=== PATIENT | male | born 1965 | race Caucasian/White ===

== ENCOUNTER 2020-09-17 13:54 | Inpatient (IN) | payer OTHER, SELFPAY ==
[2020-09-17 13:55] VITALS: BP 143/99; PULSE 100; RESP 18; TEMP 35; O2SAT 96; BMI 29.0
--- NOTE | 2020-09-17 14:37 | CT_ITS ---
We are attempting to reach an attending provider to discuss findings. An addendum with communication details will be sent when the communication is complete. STUDY: CT ABDOMEN AND PELVIS WITH CONTRAST REASON FOR EXAM: Male, 54 years old. lower abdominal pain RADIATION DOSAGE (If Supplied By Facility): CTDIvol = ( 13.36 ) mGy, DLP = ( 1015.01 ) mGycm TECHNIQUE: Transaxial images were obtained from the dome of the diaphragm to the symphysis pubis without oral contrast. IV 100mL Isovue-300 was administered. Sagittal and coronal images were reconstructed. Individualized dose optimization techniques were used for this CT. COMPARISON: CT of abdomen and pelvis dated June 20162015 FINDINGS: There is acute diverticulitis in the mid aspect of the sigmoid colon near the midline of the upper pelvis with associated perforation and moderate pericolonic inflammatory stranding. Small amounts of contained free air are present just to the right of midline in the upper pelvis adjacent to the acute diverticulitis. The full length of the colon is mildly dilated with gas and fluid. Normal visualized stomach. There is a paralytic ileus of the small intestine with mild fluid distention. There are multiple colonic diverticula consistent with diverticulosis. The appendix is visualized and appears normal. The visualized lung bases are unremarkable. The visualized portions of the heart are within normal limits. Normal liver. Normal gallbladder and extrahepatic biliary system. Normal spleen. Normal pancreas. Normal bilateral adrenal glands. Normal right kidney. Normal left kidney. Normal abdominal aorta. Normal inferior vena cava. Normal retroperitoneum. Normal urinary bladder. There are prostatic calcifications. Normal abdominal wall. There are diffuse degenerative changes of the visualized lumbar spine. CT/Abdomen/Pelvis W IV Cont ONLY IMPRESSION: Acute perforated sigmoid diverticulitis 1. There is acute diverticulitis in the mid aspect of the sigmoid colon near the midline of the upper pelvis with associated perforation and moderate pericolonic inflammatory stranding. Small amounts of contained free air are present just to the right of midline in the upper pelvis adjacent to the acute diverticulitis. The full length of the colon is mildly dilated with gas and fluid. 2. Small bowel ileus Electronically Signed: Moy Rhodes MD at 17:39 EDT , Service support ,
[2020-09-17] MEDS: Ondansetron 4 MG/2 ML Vial IV (14:57)
[2020-09-17] MEDS: Morphine 4 MG/ML Syringe IV ×2 (14:57→16:27)
[2020-09-17] MEDS: 0.9% Normal Saline 1,000 ML 1000 ML IV (14:57)
--- NOTE | 2020-09-17 15:04 | ED.VIS.GI ---
History of Present Illness Chief Complaint: Abd Pain Informant: Patient - Abdominal Pain/Flank Pain Onset: Days Context: Gradual Onset Timing: Intermittent Quality: Aching, Sharp Location: - - Diffuse but worse on the right lower quadrant and suprapubic area Narrative: Patient is a 54-year-old male with history of colonic infection presenting for worsening abdominal pain. Patient states on Tuesday, 3 days ago, he started to have mild abdominal cramping. He thought maybe he was constipated so he took magnesium citrate for it. He did have bowel movements but has since had worsening abdominal pain. He started having nausea and vomiting. He states his vomit up yellow/green substance. He was feeling better yesterday with and felt worse again today. He drank more magnesium citrate today and is continue to feel worse. He denies any black or blood in his stool. He is having a lot of bowel movements. He is having significant pain in his suprapubic region whenever he hits bumps on the road. He denies any fever or chills. He denies any history of abdominal surgeries. He ate breakfast today but reports felt so bad he decided come to the emergency room. He states this feels much more severe than the last time he had his colon infection. No other complaints at this time. Past Medical History - Allergies and Home Meds Allergies/Adverse Reactions: Allergies bee venom protein (honey bee) Allergy (Verified 09/17/20 14:46) Hives Penicillins Adverse Reaction (Verified 09/17/20 13:58) Swelling Primary Care Physician: Adalberto Santamaria MD [Primary Care Provider] - Surgical History: no surgical history Smoking Status: Never smoker Review of Systems General: Denies: Chills, Fever, Sweats Eyes: Denies: Visual changes - bilaterally, Diplopia ENT: Denies: Rhinorrhea, Sore throat Cardiovascular: Denies: Chest pain, Palpitations Respiratory: Denies: Dyspnea, Cough, Dyspnea on exertion Gastrointestinal: Reports: Abdominal pain, Nausea, Vomiting, Diarrhea. Denies: Melena, Hematochezia Genitourinary: Denies: Dysuria, Hematuria, Frequency Musculoskeletal: Denies: Back pain, Extremity Pain Skin: Denies: Rash, Wounds Neurological: Denies: Headache, Weakness, Numbness Physical Exam Vital Signs/Narrative: Vital Signs Temp Pulse Resp BP Pulse Ox 09/17/20 13:55 95.0 F L 100 18 143/99 H 96 Inital Vital Signs reviewed: Yes General: Well nourished, Well developed, No Acute Distress Head: Normocephalic, Atraumatic Eyes: Perrl, EOMI ENT: Moist mucous membranes, No rhinorrhea Neck: Supple, Nontender Cardiovascular: Regular rate, Regular rhythm, No murmurs Respiratory: No distress, CTA bilaterally, Chest nontender Abdomen: Soft, Tender - Right lower quadrant and suprapubic region, Guarding, Rebound tenderness, Hypoactive bowel sounds. Negative for: Nondistended - Mildly distended abdomen, Mass, Salgado's sign Back: Nontender, Normal Inspection Extremities: Nontender, No edema Skin: Normal color, No rash Neurological: Alert, Oriented x3, Cranial nerves II-XII grossly intact, Normal Strength, Normal Sensation Psychological: Normal affect, Normal Mood Diagnostic/Tx/Re-eval Laboratory Data 09/17/20 09/17/20 09/17/20 14:53 14:53 14:53 WBC 13.3 H RBC 5.83 Hgb 16.6 H Hct 50.3 MCV 86.3 MCH 28.5 MCHC 33.0 RDW Std Deviation 40.5 RDW Coeff of Joelle 13.0 Plt Count 275 MPV 9.8 Immature Gran % (Auto) 0.200 Neut % (Auto) 83.2 H Lymph % (Auto) 9.5 L [place] % (Auto) 6.1 Eos % (Auto) 0.8 Baso % (Auto) 0.2 Absolute Neuts (auto) 11.1 H Absolute Lymphs (auto) 1.27 Nucleated RBC % 0 Sodium 138 Potassium 3.9 Chloride 105 Carbon Dioxide 31.0 Anion Gap 2 L BUN 15 Creatinine 1.24 Estim Creat Clear Calc 62.19 Est GFR (MDRD) Af Amer 77 Est GFR (MDRD) Non-Af 64 BUN/Creatinine Ratio 12.1 Glucose 96 Lactic Acid 1.2 Calcium 9.8 Total Bilirubin 0.40 AST 21 ALT 31 Alkaline Phosphatase 69 Total Protein 8.5 H Albumin 3.9 Globulin 4.6 H Albumin/Globulin Ratio 0.8 L Lipase 415 H Urine Color Urine Clarity Urine pH Ur Specific [place] Urine Protein Urine Glucose (UA) Urine Ketones Urine Occult Blood Urine Nitrite Urine Bilirubin Urine Urobilinogen Ur Leukocyte Esterase Urine RBC Urine WBC Ur Squamous Epith Cells Urine Bacteria Hyaline Casts Urine Mucus 09/17/20 15:25 WBC RBC Hgb Hct MCV MCH MCHC RDW Std Deviation RDW Coeff of Joelle Plt Count MPV Immature Gran % (Auto) Neut % (Auto) Lymph % (Auto) [place] % (Auto) Eos % (Auto) Baso % (Auto) Absolute Neuts (auto) Absolute Lymphs (auto) Nucleated RBC % Sodium Potassium Chloride Carbon Dioxide Anion Gap BUN Creatinine Estim Creat Clear Calc Est GFR (MDRD) Af Amer Est GFR (MDRD) Non-Af BUN/Creatinine Ratio Glucose Lactic Acid Calcium Total Bilirubin AST ALT Alkaline Phosphatase Total Protein Albumin Globulin Albumin/Globulin Ratio Lipase Urine Color Yellow Urine Clarity Clear Urine pH 5.0 Ur Specific [place] 1.025 Urine Protein 15 H Urine Glucose (UA) Normal Urine Ketones Negative Urine Occult Blood 10 H Urine Nitrite Negative Urine Bilirubin Negative Urine Urobilinogen Normal Ur Leukocyte Esterase Negative Urine RBC 0 SEEN Urine WBC 0 SEEN Ur Squamous Epith Cells 0 SEEN Urine Bacteria 1+ Hyaline Casts 0-5 SEEN Urine Mucus 1+ - Medical Decision Making Patient evaluated for worsening abdominal pain. Is his lower abdomen. He does have a history of diverticulitis. Patient appears nontoxic but mildly distressed secondary to pain. He has a very tender abdomen. Patient is treated with Zofran and morphine with minimal improvement of his symptoms. He is given IV fluids. Patient has a leukocytosis. His lipase is mildly elevated. When questioned by this patient states he has a history of elevated triglycerides. Patient is not appear to be on any medications. Patient is redosed with morphine and then Toradol. CT interpreted by myself shows diverticulitis with microperforations. The appendix appears normal. Surgery is made aware this patient but he will be treated medically. Patient is given Cipro and Flagyl as he is allergic to penicillin as it causes hives. He is admitted to the medicine service. Final CT read is still pending at time of final disposition. Patient agreeable with plan of care. [facility] ED Disposition - Plan for ED Patient: Disposition: Acute Care Hospital [facility] Diagnosis: Diverticulitis of colon with perforation, Elevated lipase Referrals: Adalberto Santamaria MD [Primary Care Provider] -
[2020-09-17 15:16] LABS: Absolute Lymphocyte Count 1.27 X10^3/uL (0.83-4.51); Absolute Neutrophil Count 11.1 X10^3/uL (2.0-7.7); Basophil# 0.03 X10^3/uL; Basophil% 0.2 % (0-1); Eosinophils% 0.8 % (0-5); Hematocrit 50.3 % (40-54); Hemoglobin 16.6 g/dL (13.0-16.5); Lymphocyte # 1.27 X10^3/ul (4.0); Lymphocyte % 9.5 % (19-41); Mean Corpuscular Hgb 28.5 pg (27.0-32.0); Mean Corpuscular Volume 86.3 fL (80-94); Mean Platelet Vol. 9.8 fl (6.2-12.0); Monocyte# 0.81 X10^3/uL; Monocyte% 6.1 % (0-10); NRBC Flagged by Analyzer 0 % (0-5); Neutrophil # 11.09 X10^3/uL (2.7-7.7); Neutrophil % 83.2 % (47-70); Platelet Count 275 K/mm3 (150-450); RBC Distribution Width SD 40.5 fl (35.1-43.9); Red Blood Count 5.83 M/mm3 (4.6-6.2); White Blood Count 13.3 K/mm3 (4.4-11.0)
[2020-09-17 15:33] VITALS: BP 139/91; PULSE 104; RESP 16; TEMP 37.7; O2SAT 96
[2020-09-17 15:33] LABS: Red Blood Cells-Urine 0 SEEN /hpf (0-5); Squamous Epithelial Cells - UA 0 SEEN /hpf (0-5); White Blood Cells 0 SEEN /hpf (0-5)
[2020-09-17 15:36] LABS: Color, Urine Yellow (Yellow); Glucose, Dipstick Normal (Normal); Ketone-Dipstick Negative (Negative); Leukocyte Esterase-Dipstick Negative /ul (Negative); Nitrite-Dipstick Negative (Negative); Occult Blood-Urine 10 /ul (Negative); Protein-Dipstick 15 mg/dl (Negative); Specific Gravity, Urine 1.025 (1.002-1.030); Urine Bilirubin Dipstick Negative (Negative); Urine Clarity Clear (Clear); Urine Urobilinogen Normal (Normal)
[2020-09-17 15:41] LABS: ALB/GLOB Ratio 0.8 RATIO (0.9-2.4); AST(SGOT) 21 U/L (15-37); Alanine Aminotransfer ALT/SGPT 31 U/L (16-61); Albumin, Serum 3.9 g/dL (3.2-5.0); Alkaline Phosphatase 69 U/L (45-117); Anion Gap 2 (5-15); BUN 15 mg/dL (7-18); BUN/Creat Ratio 12.1 RATIO (10-20); Calcium,Total 9.8 mg/dL (8.5-10.1); Chloride 105 mmol/L (98-107); Creatinine, Serum 1.24 mg/dL (0.70-1.30); EST Glomerular Filtration Rate 64 mL/min (>60); Est Glom Filt Rate - Afr Amer 77 mL/min (>60); Estimated Creatinine Clearance 62.19 ml/min; Globulin 4.6 g/dL (2.2-4.2); Glucose 96 mg/dL (74-106); Lipase 415 U/L (73-393); Potassium 3.9 mmol/L (3.5-5.1); Protein, Total 8.5 g/dL (6.4-8.2); Sodium Level 138 mmol/L (136-145)
[2020-09-17 15:42] LABS: Lactic Acid 1.2 mmol/L (0.4-1.9)
[2020-09-17 16:02] LABS: Bacteria 1+ /hpf (None Seen); Hyaline Cast 0-5 SEEN /lpf (0-5); Mucous, Urine 1+ /hpf (<or=2+)
[2020-09-17] MEDS: Ketorolac 15 MG/ML Vial IV (16:26)
[2020-09-17] MEDS: metroNIDAZOLE 500 MG/100 ML BAG 100 MG IV ×2 (16:46→22:31)
--- NOTE | 2020-09-17 16:48 | NURSING ---
MED SURG DIVERTICULTITIS JEANINES
[2020-09-17 17:06] VITALS: BMI 29.0
[2020-09-17 17:24] VITALS: BP 127/82; PULSE 86; RESP 18; TEMP 36.9; O2SAT 96
--- NOTE | 2020-09-17 18:12 | HP.PCM_ITS ---
History of Present Illness Date of Admission: 09/17/20 The patient is a 54 year old M presented to the ER due to lower abdominal pain. Patient states he has had abdominal pain in the last 3 days. It got a little better each day attempted to eat or take laxatives and it seemed to get a little bit worse and today it was the worst it has been. Patient not been eating much at all but been trying to drink to stay hydrated and also took some magnesium citrate today. Patient has history of diverticulitis about 3 years ago which he was hospitalized for. Patient states he did have recent scopes at [facility] about 2 years ago and EGD and colonoscopy. Patient did have reflux on EGD and diverticulosis on colonoscopy per patient. Patient's white blood count admit was 13. Patient CT abdomen pelvis official read call the micro per. Does appear to be a bit larger collection of air than a microperforation,but does appear to be contained?per my read. Patient states he does have reflux. Drinks alcohol 3-4 times a week about 3 or so beers each time has not had alcohol for a week due to not feeling well. Past Medical History Medical History: Medical History (Last Updated 09/17/20 @ 18:[address] Heide Medel MD) GERD (gastroesophageal reflux disease) K21.9 Allergies bee venom protein (honey bee) Allergy (Verified 09/17/20 14:46) Hives Penicillins Adverse Reaction (Verified 09/17/20 13:58) Swelling Home Medications: Ambulatory Orders Medication Instructions Recorded NK 09/17/20 Surgical History: - - right knee Psychiatric History: No pertinent psych hx Smoking Status: Never smoker Tobacco Use: Non-smoker Alcohol: Heavy - 4 times a week with about 3 beers or so each time - *Family History Maternal History Items: No pertinent history Review of Systems Constitutional: Reports: Anorexia Eyes: Denies: Blurred vision HEENT: Denies: Difficulty Swallowing Cardiovascular: Denies: Chest Pain Respiratory: Denies: Cough Gastrointestinal: Reports: Abdominal Pain, Diarrhea, Nausea. Denies: Hematochezia Genitourinary: Denies: Dysuria Neurological: Denies: Balance problems Psychiatric: Denies: Anxiety, Depression Hematologic/ Lymphatic: Denies: Easy Bruising, Easy Bleeding VTE Information - Inpt Only VTE Present on Admission: Yes VTE Mechan Device Prophylaxis: SCD's Patient Problems: Active and Suspected Problems (Last Updated 09/17/20 @ 18:[address] Heide Medel MD) Diverticulitis of colon with perforation (Acute) Elevated lipase (Acute) - Physical Exam Vitals/I&O's: Vital Signs Temp Pulse Resp BP Pulse Ox 98.4 F 86 18 127/82 H 96 09/17/20 17:24 09/17/20 17:24 09/17/20 17:24 09/17/20 17:24 09/17/20 17:24 Oxygen Delivery Method Room Air Weight: 185 lb Body Mass Index (BMI) 29.0 Intake and Output for Last 24 Hours 09/15/20 09/16/20 09/17/20 23:59 23:59 23:59 Intake Total 1000 / 1000 Balance 1000 / 1000 General: Alert, Oriented x3, Cooperative, No apparent distress HEENT: Atraumatic Lungs: Normal air movement Cardiovascular: Regular rate Abdomen: Soft, Distended - Mild, Tender - Lower abdomen, equivocal rebound on the right lower quadrant, no involuntary guarding Extremities: No clubbing, No cyanosis, No edema Neurological: Cranial nerves II-XII grossly intact Psych/Mental Status: Normal Affect Laboratory Results 09/17/20 14:53: WBC 13.3 H, RBC 5.83, Hgb 16.6 H, Hct 50.3, MCV 86.3, MCH 28.5, MCHC 33.0, RDW Std Deviation 40.5, RDW Coeff of Joelle 13.0, Plt Count 275, MPV 9.8, Immature Gran % (Auto) 0.200, Neut % (Auto) 83.2 H, Lymph % (Auto) 9.5 L, [place] % (Auto) 6.1, Eos % (Auto) 0.8, Baso % (Auto) 0.2, Absolute Neuts (auto) 11.1 H, Absolute Lymphs (auto) 1.27, Nucleated RBC % 0 09/17/20 14:53: Sodium 138, Potassium 3.9, Chloride 105, Carbon Dioxide 31.0, Anion Gap 2 L, BUN 15, Creatinine 1.24, Estim Creat Clear Calc 62.19, Est GFR (MDRD) Af Amer 77, Est GFR (MDRD) Non-Af 64, BUN/Creatinine Ratio 12.1, Glucose 96, Calcium 9.8, Total Bilirubin 0.40, AST 21, ALT 31, Alkaline Phosphatase 69, Total Protein 8.5 H, Albumin 3.9, Globulin 4.6 H, Albumin/Globulin Ratio 0.8 L, Lipase 415 H 09/17/20 14:53: Lactic Acid 1.2 09/17/20 15:25: Urine Color Yellow, Urine Clarity Clear, Urine pH 5.0, Ur Specific [place] 1.025, Urine Protein 15 H, Urine Glucose (UA) Normal, Urine Ketones Negative, Urine Occult Blood 10 H, Urine Nitrite Negative, Urine Bilirubin Negative, Urine Urobilinogen Normal, Ur Leukocyte Esterase Negative, Urine RBC 0 SEEN, Urine WBC 0 SEEN, Ur Squamous Epith Cells 0 SEEN, Urine Bacteria 1+, Hyaline Casts 0-5 SEEN, Urine Mucus 1+ Current Medications Sodium Chloride () 1,000 mls @ 125 mls/hr IV .Q8H [facility] Ciprofloxacin (Cipro) 400 mg in 200 mls @ 200 mls/hr IV Q12 [facility] Metronidazole (Flagyl) 500 mg in 100 mls @ 100 mls/hr IV Q8 [facility] Melatonin (Melatonin 3 Mg Tablet) 3 mg PO QHS PRN PRN PRN Reason: INSOMNIA Morphine Sulfate (Morphine 2 Mg/Ml Syringe) 2 mg IV Q3H PRN PRN PRN Reason: Pain Score 6-10 Ondansetron HCl (Ondansetron 4 Mg/2 Ml Vial) 4 mg IV Q8H PRN PRN PRN Reason: NAUSEA/VOMITING Assessment/Plan All Active Problems (Last Updated 09/17/20 @ 18:[address] Heide Medel MD) Diverticulitis of colon with perforation (Acute) Elevated lipase (Acute) 54-year-old male with perforated diverticulitis?contained 1. Did review CT abdomen pelvis with the patient discussed that he does have air outside his colon and appears to be larger than what I would call on microperforation. We will keep n.p.o./IV fluids. Discussed with patient that if his pain does increase or does not improve or increase heart rate, fevers or increased white blood cell count patient would need an urgent sigmoidectomy. Would plan to start laparoscopically and open if needed. Also discussed possible colostomy which would be lower as he does have fluid in the colon so I think he should be able to be primarily anastomosed during surgery if needed. Discussed the surgery including but not limited risk of bleeding, infection, leak at the anastomosis, injury to another organ, anesthesia. Patient expressed understanding had no further questions at this time. We will continue to follow patient closely for any changes will plan for urgent surgery. 2. Cipro 400 mg IV every 12, Flagyl 500 mg IV every 8 3. Continue pain control Heide Medel M.D. Pager: [phone] [facility] [address] [place] [address], [facility], [address] [place] [address] Office: [phone] Inpatient E&M: [id number] Init Hosp L3
[2020-09-17 18:22] VITALS: BMI 27.8
[2020-09-17 18:23] VITALS: BP 119/74; PULSE 86; RESP 18; TEMP 36.8; O2SAT 97
[2020-09-17] MEDS: Lactated Ringers 1,000 ML 999 ML IV (18:59)
[2020-09-17] MEDS: 0.9% Normal Saline 1,000 ML 125 ML IV (20:00)
[2020-09-17 20:15] VITALS: BP 132/87; PULSE 87; RESP 18; TEMP 36.8; O2SAT 95
[2020-09-17] MEDS: Morphine 2 MG/ML Syringe IV (20:31)
[2020-09-17 22:30] VITALS: BP 116/75; PULSE 79; RESP 16; TEMP 36.8; O2SAT 94
[2020-09-18] MEDS: Ciprofloxacin 400 MG/200 ML BAG 200 MG IV ×3 (00:12→23:17)
[2020-09-18 05:04] VITALS: BP 122/86; PULSE 81; RESP 18; TEMP 36.6; O2SAT 94
[2020-09-18] MEDS: metroNIDAZOLE 500 MG/100 ML BAG 100 MG IV ×3 (05:09→21:28)
[2020-09-18] MEDS: 0.9% Normal Saline 1,000 ML 125 ML IV ×2 (05:09→13:39)
[2020-09-18] MEDS: Morphine 2 MG/ML Syringe IV (05:11)
[2020-09-18 06:13] LABS: Absolute Lymphocyte Count 1.23 X10^3/uL (0.83-4.51); Absolute Neutrophil Count 6.1 X10^3/uL (2.0-7.7); Basophil# 0.01 X10^3/uL; Basophil% 0.1 % (0-1); Eosinophil# 0.09 X10^3/uL; Eosinophils% 1.1 % (0-5); Hematocrit 40.8 % (40-54); Lymphocyte # 1.23 X10^3/ul (4.0); Lymphocyte % 15.1 % (19-41); Mean Corp Hgb Conc 31.9 g/dL (32-36); Mean Corpuscular Hgb 27.8 pg (27.0-32.0); Mean Corpuscular Volume 87.2 fL (80-94); Mean Platelet Vol. 9.9 fl (6.2-12.0); Monocyte# 0.68 X10^3/uL; Monocyte% 8.3 % (0-10); NRBC Flagged by Analyzer 0 % (0-5); Neutrophil # 6.12 X10^3/uL (2.7-7.7); Platelet Count 203 K/mm3 (150-450); RBC Distribution Width CV 13.2 % (11.6-14.6); RBC Distribution Width SD 42.5 fl (35.1-43.9); Red Blood Count 4.68 M/mm3 (4.6-6.2); White Blood Count 8.2 K/mm3 (4.4-11.0)
[2020-09-18 06:44] LABS: Anion Gap 5 (5-15); BUN 12 mg/dL (7-18); Calcium,Total 8.3 mg/dL (8.5-10.1); Chloride 107 mmol/L (98-107); EST Glomerular Filtration Rate 82 mL/min (>60); Est Glom Filt Rate - Afr Amer 99 mL/min (>60); Estimated Creatinine Clearance 77.12 ml/min; Glucose 92 mg/dL (74-106); Potassium 3.8 mmol/L (3.5-5.1); Sodium Level 140 mmol/L (136-145)
--- NOTE | 2020-09-18 08:10 | PCM.PN.SRG ---
Patient Problems: Active and Suspected Problems (Last Updated 09/17/20 @ 18:[address] Heide Medel MD) Diverticulitis of colon with perforation (Acute) Elevated lipase (Acute) Subjective: States his abdominal pain is little bit better rates as 6/10. States that when he is up walking around does not has much discomfort. Patient has had some diarrhea - Physical Exam Vitals/I&O's: Vital Signs Temp Pulse Resp BP Pulse Ox 97.9 F 81 18 122/86 H 94 09/18/20 05:04 09/18/20 05:04 09/18/20 05:04 09/18/20 05:04 09/18/20 05:04 Oxygen Delivery Method Room Air Weight: 177 lb 7.554 oz Body Mass Index (BMI) 27.8 Intake and Output for Last 24 Hours 09/16/20 09/17/20 09/18/20 23:59 23:59 23:59 Intake Total 2200 / 2200 1412.08 / 1412.08 Balance 2200 / 2200 1412.08 / 1412.08 General: Alert, Oriented x3, Cooperative, No apparent distress HEENT: Atraumatic Lungs: Normal air movement Cardiovascular: Regular rate Abdomen: Soft, Non-Distended, Tender - Right lower/suprapubic, equivocal rebound, and no guarding Extremities: No clubbing, No cyanosis, No edema Neurological: Cranial nerves II-XII grossly intact Psych/Mental Status: Normal Affect Microbiology Past 72 Hours 09/17/20 20:15 Mucosa - Nose SARS-CoV-2 Antigen (Rapid) - Final Laboratory Results 09/17/20 14:53: WBC 13.3 H, RBC 5.83, Hgb 16.6 H, Hct 50.3, MCV 86.3, MCH 28.5, MCHC 33.0, RDW Std Deviation 40.5, RDW Coeff of Joelle 13.0, Plt Count 275, MPV 9.8, Immature Gran % (Auto) 0.200, Neut % (Auto) 83.2 H, Lymph % (Auto) 9.5 L, [place] % (Auto) 6.1, Eos % (Auto) 0.8, Baso % (Auto) 0.2, Absolute Neuts (auto) 11.1 H, Absolute Lymphs (auto) 1.27, Nucleated RBC % 0 09/17/20 14:53: Sodium 138, Potassium 3.9, Chloride 105, Carbon Dioxide 31.0, Anion Gap 2 L, BUN 15, Creatinine 1.24, Estim Creat Clear Calc 62.19, Est GFR (MDRD) Af Amer 77, Est GFR (MDRD) Non-Af 64, BUN/Creatinine Ratio 12.1, Glucose 96, Calcium 9.8, Total Bilirubin 0.40, AST 21, ALT 31, Alkaline Phosphatase 69, Total Protein 8.5 H, Albumin 3.9, Globulin 4.6 H, Albumin/Globulin Ratio 0.8 L, Lipase 415 H 09/17/20 14:53: Lactic Acid 1.2 09/17/20 15:25: Urine Color Yellow, Urine Clarity Clear, Urine pH 5.0, Ur Specific [place] 1.025, Urine Protein 15 H, Urine Glucose (UA) Normal, Urine Ketones Negative, Urine Occult Blood 10 H, Urine Nitrite Negative, Urine Bilirubin Negative, Urine Urobilinogen Normal, Ur Leukocyte Esterase Negative, Urine RBC 0 SEEN, Urine WBC 0 SEEN, Ur Squamous Epith Cells 0 SEEN, Urine Bacteria 1+, Hyaline Casts 0-5 SEEN, Urine Mucus 1+ 09/18/20 05:15: WBC 8.2, RBC 4.68, Hgb 13.0, Hct 40.8, MCV 87.2, MCH 27.8, MCHC 31.9 L, RDW Std Deviation 42.5, RDW Coeff of Joelle 13.2, Plt Count 203, MPV 9.9, Immature Gran % (Auto) 0.400, Neut % (Auto) 75.0 H, Lymph % (Auto) 15.1 L, [place] % (Auto) 8.3, Eos % (Auto) 1.1, Baso % (Auto) 0.1, Absolute Neuts (auto) 6.1, Absolute Lymphs (auto) 1.23, Nucleated RBC % 0 09/18/20 05:15: Sodium 140, Potassium 3.8, Chloride 107, Carbon Dioxide 28.0, Anion Gap 5, BUN 12, Creatinine 1.00, Estim Creat Clear Calc 77.12, Est GFR (MDRD) Af Amer 99, Est GFR (MDRD) Non-Af 82, BUN/Creatinine Ratio 12.0, Glucose 92, Calcium 8.3 L Current Medications Sodium Chloride () 1,000 mls @ 125 mls/hr IV .Q8H [facility] Last Infusion: 09/18/20 06:15 Dose: 125 mls/hr Documented by: Ciprofloxacin (Cipro) 400 mg in 200 mls @ 200 mls/hr IV Q12 [facility] Last Infusion: 09/18/20 01:15 Dose: Infused Documented by: Metronidazole (Flagyl) 500 mg in 100 mls @ 100 mls/hr IV Q8 [facility] Last Infusion: 09/18/20 06:09 Dose: Infused Documented by: Pantoprazole Sodium 40 mg/ (Sodium Chloride) 110 mls @ 330 mls/hr IV Q24 [facility] Last Infusion: 09/18/20 00:10 Dose: Infused Documented by: Melatonin (Melatonin 3 Mg Tablet) 3 mg PO QHS PRN PRN PRN Reason: INSOMNIA Morphine Sulfate (Morphine 2 Mg/Ml Syringe) 2 - 4 mg IV Q2H PRN PRN PRN Reason: Pain Score 3-10 Last Admin: 09/18/20 05:11 Dose: 2 mg Documented by: Morphine Sulfate (Morphine 4 Mg/Ml Syringe) 2 - 4 mg IV Q2H PRN PRN PRN Reason: Pain Score 3-10 Ondansetron HCl (Ondansetron 4 Mg/2 Ml Vial) 4 mg IV Q8H PRN PRN PRN Reason: NAUSEA/VOMITING Medical Necessity - Tobacco Use Smoking Status: Never smoker Tobacco Use: Non-smoker Assessment/Plan All Active Problems (Last Updated 09/17/20 @ 18:[address] Heide Medel MD) Diverticulitis of colon with perforation (Acute) Elevated lipase (Acute) 54-year-old male with perforated diverticulitis?contained 1. We will keep n.p.o./IV fluids. Patient's pain is slightly better. We will continue to monitor closely. Any changes patient understands we would plan for an urgent sigmoidectomy. 2. Cipro 400 mg IV every 12, Flagyl 500 mg IV every 8 3. Continue pain control Heide Medel M.D. Pager: [phone] [facility] [address] [place] [address], Outpatient [place], [address] [place] [address] Office: [phone] Inpatient E&M: [id number] [facility] L3
[2020-09-18 10:00] VITALS: BP 109/70; PULSE 77; RESP 18; TEMP 37.3; O2SAT 95
[2020-09-18 10:03] VITALS: O2SAT 95
--- NOTE | 2020-09-18 12:05 | CASEMGMT ---
DONA ALEXANDER Assessment: Face to Face with pt for initial transition planning/care coordination assessment. RN CATHERINE introduced self and role at [facility], pt voices understanding and consents to assessment. Pt is A/O x4 sitting up in bed and answers all questions appropriately at this time. Care providers, pharmacy, and demographics verified/updated. Admitting Dx: Diverticulitis [facility] Specialists: Denies Preferred Pharmacy: [facility] Insurance: MMO Prescription Benefit: yes LW/HPOA: Pt is not sure if he has a LW and DPOA. He denies need for further info stating he probably has pamphlets at home from another hospital stay. LNOK: brother Beto Mendez Living Arrangements: Pt lives alone in a single story house with 3 steps to enter with rail. Pt is I in ADL's and denies concerns at home. Transportation: Pt drives self. No issues with transportation. DME/HHC/SNF: Pt denies having DME and denies need for. No prior HHC or SNF stays. Pt states no concerns with going home at time of dc. Pt states no further concerns/needs. Advised pt to ask CM if any further question/concerns/needs arise, voices understanding. Pt Goal: Home Plan: Home with family support, follow up plans in place.
[2020-09-18 13:50] VITALS: BP 112/72; PULSE 78; RESP 18; TEMP 37.3; O2SAT 97
[2020-09-18] MEDS: Acetaminophen 325 MG Tablet 650 MG PO (16:09)
[2020-09-18 20:27] VITALS: BP 128/88; PULSE 73; RESP 18; TEMP 36.8; O2SAT 98
[2020-09-18] MEDS: 0.9% Saline Lock 10 ML Syringe IV (23:17)
[2020-09-19] MEDS: 0.9% Normal Saline 1,000 ML 125 ML IV (02:06)
[2020-09-19 02:07] VITALS: BP 128/74; PULSE 72; RESP 18; TEMP 36.6; O2SAT 99
[2020-09-19] MEDS: metroNIDAZOLE 500 MG/100 ML BAG 100 MG IV ×3 (05:49→21:26)
[2020-09-19 06:38] LABS: Absolute Lymphocyte Count 1.07 X10^3/uL (0.83-4.51); Absolute Neutrophil Count 6.1 X10^3/uL (2.0-7.7); Basophil# 0.02 X10^3/uL; Basophil% 0.2 % (0-1); Eosinophil# 0.19 X10^3/uL; Eosinophils% 2.3 % (0-5); Hematocrit 39.1 % (40-54); Hemoglobin 12.7 g/dL (13.0-16.5); Lymphocyte # 1.07 X10^3/ul (4.0); Mean Corp Hgb Conc 32.5 g/dL (32-36); Mean Corpuscular Hgb 28.4 pg (27.0-32.0); Mean Corpuscular Volume 87.5 fL (80-94); Mean Platelet Vol. 9.8 fl (6.2-12.0); Monocyte# 0.75 X10^3/uL; Monocyte% 9.1 % (0-10); NRBC Flagged by Analyzer 0 % (0-5); Neutrophil # 6.14 X10^3/uL (2.7-7.7); Platelet Count 206 K/mm3 (150-450); RBC Distribution Width CV 12.9 % (11.6-14.6); RBC Distribution Width SD 41.3 fl (35.1-43.9); Red Blood Count 4.47 M/mm3 (4.6-6.2); White Blood Count 8.2 K/mm3 (4.4-11.0)
--- NOTE | 2020-09-19 06:45 | PCM.PN.SRG ---
Patient Problems: Active and Suspected Problems (Last Updated 09/17/20 @ 18:[address] Heide Medel MD) Diverticulitis of colon with perforation (Acute) Elevated lipase (Acute) Subjective: Patient states abdominal pain is improving. States he is urinating quite a bit due to IV fluids. - Physical Exam Vitals/I&O's: Vital Signs Temp Pulse Resp BP Pulse Ox 97.8 F 72 18 128/74 H 99 09/19/20 02:07 09/19/20 02:07 09/19/20 02:07 09/19/20 02:07 09/19/20 02:07 Oxygen Delivery Method Room Air Weight: 177 lb 7.554 oz Body Mass Index (BMI) 27.8 Intake and Output for Last 24 Hours 09/17/20 09/18/20 09/19/20 23:59 23:59 23:59 Intake Total 2200 / 2200 5188.42 / 5188.42 210 / 210 Balance 2200 / 2200 5188.42 / 5188.42 210 / 210 General: Alert, Oriented x3, Cooperative, No apparent distress HEENT: Atraumatic Lungs: Normal air movement Cardiovascular: Regular rate Abdomen: Soft, Non-Distended, Tender - Right lower quadrant/suprapubic, focal rebound, no guarding Extremities: No clubbing, No cyanosis, No edema Skin: No rashes Microbiology Past 72 Hours 09/17/20 15:25 Urine, Clean Catch Urine Culture - Preliminary Gram Positive Cocci 09/17/20 20:15 Mucosa - Nose SARS-CoV-2 Antigen (Rapid) - Final Laboratory Results 09/19/20 06:10: WBC 8.2, RBC 4.47 L, Hgb 12.7 L, Hct 39.1 L, MCV 87.5, MCH 28.4, MCHC 32.5, RDW Std Deviation 41.3, RDW Coeff of Joelle 12.9, Plt Count 206, MPV 9.8, Immature Gran % (Auto) 0.400, Neut % (Auto) 75.0 H, Lymph % (Auto) 13.0 L, Gove % (Auto) 9.1, Eos % (Auto) 2.3, Baso % (Auto) 0.2, Absolute Neuts (auto) 6.1, Absolute Lymphs (auto) 1.07, Nucleated RBC % 0 09/19/20 06:10: Sodium Pending, Potassium Pending, Chloride Pending, Carbon Dioxide Pending, Anion Gap Pending, BUN Pending, Creatinine Pending, Est GFR (MDRD) Af Amer Pending, Est GFR (MDRD) Non-Af Pending, BUN/Creatinine Ratio Pending, Glucose Pending, Calcium Pending Current Medications Acetaminophen (Acetaminophen 325 Mg Tablet) 650 mg PO Q6H PRN PRN PRN Reason: Pain 1-10 or Fever Last Admin: 09/18/20 16:09 Dose: 650 mg Documented by: Sodium Chloride () 1,000 mls @ 125 mls/hr IV .Q8H [facility] Last Admin: 09/19/20 02:06 Dose: 125 mls/hr Documented by: Ciprofloxacin (Cipro) 400 mg in 200 mls @ 200 mls/hr IV Q12 [facility] Last Infusion: 09/19/20 00:31 Dose: Infused Documented by: Metronidazole (Flagyl) 500 mg in 100 mls @ 100 mls/hr IV Q8 [facility] Last Admin: 09/19/20 05:49 Dose: 100 mls/hr Documented by: Pantoprazole Sodium 40 mg/ (Sodium Chloride) 110 mls @ 330 mls/hr IV Q24 [facility] Last Infusion: 09/18/20 10:00 Dose: Infused Documented by: Melatonin (Melatonin 3 Mg Tablet) 3 mg PO QHS PRN PRN PRN Reason: INSOMNIA Morphine Sulfate (Morphine 2 Mg/Ml Syringe) 2 - 4 mg IV Q2H PRN PRN PRN Reason: Pain Score 3-10 Last Admin: 09/18/20 05:11 Dose: 2 mg Documented by: Morphine Sulfate (Morphine 4 Mg/Ml Syringe) 2 - 4 mg IV Q2H PRN PRN PRN Reason: Pain Score 3-10 Ondansetron HCl (Ondansetron 4 Mg/2 Ml Vial) 4 mg IV Q8H PRN PRN PRN Reason: NAUSEA/VOMITING Medical Necessity - Tobacco Use Smoking Status: Never smoker Tobacco Use: Non-smoker Assessment/Plan All Active Problems (Last Updated 09/17/20 @ 18:[address] Heide Medel MD) Diverticulitis of colon with perforation (Acute) Elevated lipase (Acute) 54-year-old male with perforated diverticulitis?contained 1. Patient pain still improving keep n.p.o./IV fluids. We will plan to repeat CAT scan tomorrow to see if this area is improving. 2. Cipro 400 mg IV every 12, Flagyl 500 mg IV every 8 3. Continue pain control Heide Medel M.D. Pager: [phone] [facility] [address] [place] [address], Outpatient [place], [address] [place] [address] Office: [phone] Inpatient E&M: [id number] Subs Hosp L3
[2020-09-19 07:15] LABS: Anion Gap 6 (5-15); BUN 8 mg/dL (7-18); BUN/Creat Ratio 9.6 RATIO (10-20); Calcium,Total 8.4 mg/dL (8.5-10.1); Chloride 109 mmol/L (98-107); Creatinine, Serum 0.83 mg/dL (0.70-1.30); EST Glomerular Filtration Rate 101 mL/min (>60); Est Glom Filt Rate - Afr Amer 122 mL/min (>60); Estimated Creatinine Clearance 92.91 ml/min; Glucose 82 mg/dL (74-106); Potassium 3.9 mmol/L (3.5-5.1); Sodium Level 139 mmol/L (136-145)
[2020-09-19 08:10] VITALS: BP 131/81; PULSE 79; RESP 18; TEMP 36.7; O2SAT 98
[2020-09-19] MEDS: Ciprofloxacin 400 MG/200 ML BAG 200 MG IV ×2 (09:50→22:36)
[2020-09-19] MEDS: 0.9% Normal Saline 1,000 ML 60 ML IV (13:26)
[2020-09-19 15:00] VITALS: BP 139/81; PULSE 87; RESP 18; TEMP 37.1; O2SAT 95
[2020-09-19] MEDS: Acetaminophen 325 MG Tablet 650 MG PO (18:17)
[2020-09-19 21:18] VITALS: BP 129/73; PULSE 77; RESP 18; TEMP 37; O2SAT 96
[2020-09-20 02:55] VITALS: BP 142/73; PULSE 65; RESP 18; TEMP 36.2; O2SAT 98
[2020-09-20] MEDS: metroNIDAZOLE 500 MG/100 ML BAG 100 MG IV ×3 (05:48→21:10)
--- NOTE | 2020-09-20 08:17 | PN.SURG_ITS ---
Patient Problems: Active and Suspected Problems (Last Updated 09/17/20 @ 18:[address] Heide Medel MD) Diverticulitis of colon with perforation (Acute) Elevated lipase (Acute) Subjective: Patient's pain is still improving patient rates it at 08/27. - Physical Exam Vitals/I&O's: Vital Signs Temp Pulse Resp BP Pulse Ox 97.2 F L 65 18 142/73 H 98 09/20/20 02:55 09/20/20 02:55 09/20/20 02:55 09/20/20 02:55 09/20/20 02:55 Oxygen Delivery Method Room Air Weight: 177 lb 7.554 oz Body Mass Index (BMI) 27.8 Intake and Output for Last 24 Hours 09/18/20 09/19/20 09/20/20 23:59 23:59 23:59 Intake Total 5188.42 / 5188.42 3148.5 / 3148.5 100 / 100 Balance 5188.42 / 5188.42 3148.5 / 3148.5 100 / 100 General: Alert, Oriented x3, Cooperative, No apparent distress HEENT: Atraumatic Lungs: Normal air movement Cardiovascular: Regular rate Abdomen: Soft, Non-Distended, Tender - Suprapubic, mild, no peritoneal signs Extremities: No clubbing, No cyanosis, No edema Microbiology Past 72 Hours 09/17/20 15:25 Urine, Clean Catch Urine Culture - Final Enterococcus faecalis 09/17/20 20:15 Mucosa - Nose SARS-CoV-2 Antigen (Rapid) - Final Current Medications Acetaminophen (Acetaminophen 325 Mg Tablet) 650 mg PO Q6H PRN PRN PRN Reason: Pain 1-10 or Fever Last Admin: 09/19/20 18:17 Dose: 650 mg Documented by: Sodium Chloride () 1,000 mls @ 60 mls/hr IV .[id number] [facility] Last Infusion: 09/19/20 23:40 Dose: 60 mls/hr Documented by: Ciprofloxacin (Cipro) 400 mg in 200 mls @ 200 mls/hr IV Q12 [facility] Last Infusion: 09/19/20 23:40 Dose: Infused Documented by: Metronidazole (Flagyl) 500 mg in 100 mls @ 100 mls/hr IV Q8 [facility] Last Infusion: 09/20/20 06:56 Dose: Infused Documented by: Pantoprazole Sodium 40 mg/ (Sodium Chloride) 110 mls @ 330 mls/hr IV Q24 [facility] Last Infusion: 09/19/20 09:50 Dose: 0 mls/hr Documented by: Melatonin (Melatonin 3 Mg Tablet) 3 mg PO QHS PRN PRN PRN Reason: INSOMNIA Morphine Sulfate (Morphine 2 Mg/Ml Syringe) 2 - 4 mg IV Q2H PRN PRN PRN Reason: Pain Score 3-10 Last Admin: 09/18/20 05:11 Dose: 2 mg Documented by: Morphine Sulfate (Morphine 4 Mg/Ml Syringe) 2 - 4 mg IV Q2H PRN PRN PRN Reason: Pain Score 3-10 Ondansetron HCl (Ondansetron 4 Mg/2 Ml Vial) 4 mg IV Q8H PRN PRN PRN Reason: NAUSEA/VOMITING Medical Necessity - Tobacco Use Smoking Status: Never smoker Tobacco Use: Non-smoker Assessment/Plan All Active Problems (Last Updated 09/17/20 @ 18:[address] Heide Medel MD) Diverticulitis of colon with perforation (Acute) Elevated lipase (Acute) 54-year-old male with perforated diverticulitis?contained 1. Patient pain still improving keep n.p.o./IV fluids. CAT scan abdomen pelvis this morning. Likely will transition to a clear diet as well later today 2. Cipro 400 mg IV every 12, Flagyl 500 mg IV every 8 3. Continue pain control Heide Medel M.D. Pager: [phone] [facility] [address] [place] [address], Outpatient [place], [address] [place] [address] Office: [phone] Inpatient E&M: [id number] [facility] Hosp L3
[2020-09-20 08:22] VITALS: BP 132/76; PULSE 70; RESP 16; TEMP 36.7; O2SAT 97
[2020-09-20] MEDS: Ciprofloxacin 400 MG/200 ML BAG 200 MG IV ×2 (09:05→22:13)
--- NOTE | 2020-09-20 10:00 | CT_ITS ---
STUDY: CT ABDOMEN AND PELVIS WITH CONTRAST REASON FOR EXAM: Male, 54 years old. perf diverticulitis -- PO and IV RADIATION DOSAGE (If Supplied By Facility): CTDIvol = ( 13.85 ) mGy, DLP = ( 717.66 ) mGycm TECHNIQUE: Transaxial images were obtained from the dome of the diaphragm to the symphysis pubis with oral contrast. 100 mL ISOVUE-300 was administered. Sagittal and coronal images were reconstructed. Individualized dose optimization techniques were used for this CT. COMPARISON: 09/17/2020 FINDINGS: The visualized lung bases are unremarkable. The visualized portions of the heart are within normal limits. Normal liver. Normal gallbladder and extrahepatic biliary system. Normal spleen. Normal pancreas. Normal bilateral adrenal glands. Normal right kidney. Normal left kidney. Normal visualized stomach. Normal small intestine. There is diverticulosis, with thickening of the sigmoid colon wall, and pericolonic inflammation changes consistent with acute diverticulitis. No extraluminal contrast or focal fluid collection. The appendix is visualized and appears normal. Normal abdominal aorta. Normal inferior vena cava. Normal retroperitoneum. Pericolonic stranding extends to the bladder dome with mild bladder wall thickening (image 72 series 602). There is enlargement of the prostate gland. Normal abdominal wall. No destructive bony process. CT/Abdomen/Pelvis WITH Contrast IMPRESSION: 1. Acute sigmoid diverticulitis (similar) without focal fluid collection, extraluminal contrast or pneumoperitoneum/perforation (resolved since prior study). 2. Reactive cystitis. Electronically Signed: Homer Bello MD ([place]) at 14:21 EDT , Service support ,
[2020-09-20 14:01] VITALS: BP 135/76; PULSE 68; RESP 16; TEMP 36.7; O2SAT 98
[2020-09-20] MEDS: 0.9% Saline Lock 10 ML Syringe IV (14:05)
[2020-09-20 20:00] VITALS: BP 141/95; PULSE 68; RESP 16; TEMP 36.6; O2SAT 96
[2020-09-21 02:07] VITALS: BP 146/86; PULSE 68; RESP 18; TEMP 36.6; O2SAT 95
[2020-09-21] MEDS: metroNIDAZOLE 500 MG/100 ML BAG 100 MG IV ×3 (05:01→21:40)
[2020-09-21 08:24] VITALS: BP 141/78; PULSE 78; RESP 16; TEMP 36.6; O2SAT 96
--- NOTE | 2020-09-21 08:37 | PN.SURG_ITS ---
Patient Problems: Active and Suspected Problems (Last Updated 09/17/20 @ 18:[address] Heide Medel MD) Diverticulitis of colon with perforation (Acute) Elevated lipase (Acute) Subjective: Patient denies much abdominal pain, repeat CT abdomen pelvis did show resolution of extraluminal air. Patient tolerated clears - Physical Exam Vitals/I&O's: Vital Signs Temp Pulse Resp BP Pulse Ox 97.8 F 78 16 141/78 H 96 09/21/20 08:24 09/21/20 08:24 09/21/20 08:24 09/21/20 08:24 09/21/20 08:24 Oxygen Delivery Method Room Air Weight: 177 lb 7.554 oz Body Mass Index (BMI) 27.8 Intake and Output for Last 24 Hours 09/19/20 09/20/20 09/21/20 23:59 23:59 23:59 Intake Total 3148.5 / 3148.5 2131 / 2131 100 / 100 Balance 3148.5 / 3148.5 213 / 213 100 / 100 General: Alert, Oriented x3, Cooperative, No apparent distress HEENT: Atraumatic Lungs: Normal air movement Cardiovascular: Regular rate Abdomen: Soft, Non-Distended, Tender - Suprapubic just to the right and left, no peritoneal signs Microbiology Past 72 Hours 09/17/20 15:25 Urine, Clean Catch Urine Culture - Final Enterococcus faecalis Current Medications Acetaminophen (Acetaminophen 325 Mg Tablet) 650 mg PO Q6H PRN PRN PRN Reason: Pain 1-10 or Fever Last Admin: 09/19/20 18:17 Dose: 650 mg Documented by: Ciprofloxacin (Cipro) 400 mg in 200 mls @ 200 mls/hr IV Q12 [facility] Last Infusion: 09/20/20 23:13 Dose: Infused Documented by: Metronidazole (Flagyl) 500 mg in 100 mls @ 100 mls/hr IV Q8 [facility] Last Infusion: 09/21/20 06:01 Dose: Infused Documented by: Pantoprazole Sodium 40 mg/ (Sodium Chloride) 110 mls @ 330 mls/hr IV Q24 [facility] Last Infusion: 09/20/20 10:38 Dose: Infused Documented by: Melatonin (Melatonin 3 Mg Tablet) 3 mg PO QHS PRN PRN PRN Reason: INSOMNIA Morphine Sulfate (Morphine 2 Mg/Ml Syringe) 2 - 4 mg IV Q2H PRN PRN PRN Reason: Pain Score 3-10 Last Admin: 09/18/20 05:11 Dose: 2 mg Documented by: Morphine Sulfate (Morphine 4 Mg/Ml Syringe) 2 - 4 mg IV Q2H PRN PRN PRN Reason: Pain Score 3-10 Ondansetron HCl (Ondansetron 4 Mg/2 Ml Vial) 4 mg IV Q8H PRN PRN PRN Reason: NAUSEA/VOMITING Medical Necessity - Tobacco Use Smoking Status: Never smoker Tobacco Use: Non-smoker Assessment/Plan All Active Problems (Last Updated 09/17/20 @ 18:[address] Heide Medel MD) Diverticulitis of colon with perforation (Acute) Elevated lipase (Acute) 54-year-old male with perforated diverticulitis?contained 1. Patient pain still improving tolerating clears, will remain on clears until pain resolved. Patient's repeat CT abdomen pelvis did show resolution of extraluminal air 2. Cipro 400 mg IV every 12, Flagyl 500 mg IV every 8 3. Continue pain control Heide Medel M.D. Pager: [phone] [facility] [address] [place] [address], [facility], [address] [place] [address] Office: [phone] Inpatient E&M: [id number] [facility] Hosp L2
[2020-09-21] MEDS: Ciprofloxacin 400 MG/200 ML BAG 200 MG IV ×2 (10:39→22:52)
[2020-09-21 14:22] VITALS: BP 127/86; PULSE 69; RESP 16; TEMP 36.7; O2SAT 100
[2020-09-21 20:00] VITALS: BP 149/102; PULSE 65; RESP 16; TEMP 36.6; O2SAT 99
[2020-09-22 02:10] VITALS: BP 136/91; PULSE 59; RESP 16; TEMP 36.6; O2SAT 98
[2020-09-22] MEDS: metroNIDAZOLE 500 MG/100 ML BAG 100 MG IV (05:34)
[2020-09-22] MEDS: 0.9% Saline Lock 10 ML Syringe IV ×2 (05:34→06:46)
[2020-09-22 07:26] VITALS: BP 131/88; PULSE 72; RESP 18; TEMP 36.6; O2SAT 97
--- NOTE | 2020-09-22 08:31 | PN.SURG_ITS ---
Patient Problems: Active and Suspected Problems (Last Updated 09/17/20 @ 18:[address] Heide Medel MD) Diverticulitis of colon with perforation (Acute) Elevated lipase (Acute) Subjective: Patient states he is doing well tolerating clears - Physical Exam Vitals/I&O's: Vital Signs Temp Pulse Resp BP Pulse Ox 97.8 F 72 18 131/88 H 97 09/22/20 07:26 09/22/20 07:26 09/22/20 07:26 09/22/20 07:26 09/22/20 07:26 Oxygen Delivery Method Room Air Weight: 177 lb 7.554 oz Body Mass Index (BMI) 27.8 Intake and Output for Last 24 Hours 09/20/20 09/21/20 09/22/20 23:59 23:59 23:59 Intake Total 2130 610 / 610 300 / 300 Balance 2130 610 / 610 300 / 300 General: Alert, Oriented x3, Cooperative, No apparent distress HEENT: Atraumatic Lungs: Normal air movement Cardiovascular: Regular rate Abdomen: Soft, Non Tender, Non-Distended Extremities: No clubbing, No cyanosis, No edema Neurological: Cranial nerves II-XII grossly intact Microbiology Past 72 Hours 09/17/20 15:25 Urine, Clean Catch Urine Culture - Final Enterococcus faecalis Current Medications Acetaminophen (Acetaminophen 325 Mg Tablet) 650 mg PO Q6H PRN PRN PRN Reason: Pain 1-10 or Fever Last Admin: 09/19/20 18:17 Dose: 650 mg Documented by: Ciprofloxacin (Cipro) 400 mg in 200 mls @ 200 mls/hr IV Q12 [facility] Last Infusion: 09/22/20 00:20 Dose: Infused Documented by: Metronidazole (Flagyl) 500 mg in 100 mls @ 100 mls/hr IV Q8 [facility] Last Infusion: 09/22/20 06:38 Dose: Infused Documented by: Pantoprazole Sodium 40 mg/ (Sodium Chloride) 110 mls @ 330 mls/hr IV Q24 [facility] Last Infusion: 09/21/20 10:13 Dose: Infused Documented by: Sodium Chloride () 250 mls @ 15 mls/hr IV .[id number] PRN PRN Reason: Saline Flush Sodium Chloride () 250 mls @ 15 mls/hr IV .[id number] PRN PRN Reason: Additional IVPB Infusion Melatonin (Melatonin 3 Mg Tablet) 3 mg PO QHS PRN PRN PRN Reason: INSOMNIA Morphine Sulfate (Morphine 2 Mg/Ml Syringe) 2 - 4 mg IV Q2H PRN PRN PRN Reason: Pain Score 3-10 Last Admin: 09/18/20 05:11 Dose: 2 mg Documented by: Morphine Sulfate (Morphine 4 Mg/Ml Syringe) 2 - 4 mg IV Q2H PRN PRN PRN Reason: Pain Score 3-10 Ondansetron HCl (Ondansetron 4 Mg/2 Ml Vial) 4 mg IV Q8H PRN PRN PRN Reason: NAUSEA/VOMITING Sodium Chloride (0.9% Saline Lock 10 Ml Syringe) 10 - 40 ml IV UD PRN PRN Reason: SALINE FLUSH Last Admin: 09/22/20 06:46 Dose: 10 ml Documented by: Medical Necessity - Tobacco Use Smoking Status: Never smoker Tobacco Use: Non-smoker Assessment/Plan All Active Problems (Last Updated 09/17/20 @ 18:[address] Heide Medel MD) Diverticulitis of colon with perforation (Acute) Elevated lipase (Acute) 54-year-old male with perforated diverticulitis?contained 1. Patient tolerating clears advance to full's. Patient tolerates okay to DC home. Few days patient will transfer to a transitional diet 2. Cipro 400 mg IV every 12, Flagyl 500 mg IV every 8--We will send patient home with Cipro Flagyl p.o. 3. Continue pain control Heide Medel M.D. Pager: [phone] [facility] [address] [place] [address], [facility] [address] [place] [address] Office: [phone] Inpatient E&M: [id number] [facility] Hosp L2
--- NOTE | 2020-09-22 08:32 | DCINST_ITS ---
Discharge Diet: - - Full liquids,Ensure/protein drinks??in a few days or once pain appears to be completely resolved okay to transition to a low fiber diet. Will stay on the low fiber diet for about 3 to 4 weeks Discharge Activity: May Drive, May Shower Call your doctor if your incision/area has: Increased Pain/ Swelling Call your doctor if you observe: Fever of 101 or Higher Additional Instructions: Diet: Full liquids/protein or Ensure drinks okay and encouraged; Once pain is completely resolved or in a couple days okay to transition to transitional/low fiber diet. Will stay on a low fiber diet for about 3 to 4 weeks. Allergies/Adverse Reactions: Allergies bee venom protein (honey bee) Allergy (Verified 09/17/20 14:46) Hives Penicillins Adverse Reaction (Verified 09/17/20 13:58) Swelling Medications to take at Discharge Ciprofloxacin [Cipro] 500 mg PO BID #16 tab 09/22/20 Metronidazole 500 mg PO TID #24 tablet 09/22/20 Primary Care Physician: Adalberto Santamaria MD [Primary Care Provider] - Test Results: Test results from this visit will be discussed in further detail at your follow- up appointment, if applicable. Please Follow Up With: Heide Medel MD - After 5 PM and on the weekends call [phone] with any concerns When: Call the office for a follow-up appointment in 1 to 2 weeks. Proposed Discharge Date: 09/22/20
--- NOTE | 2020-09-22 08:52 | DS.PCM_ITS ---
Discharge Date and Diagnosis - Problem List Patient Problems: Active and Suspected Problems (Last Updated 09/17/20 @ 18:[address] Heide Medel MD) Diverticulitis of colon with perforation (Acute) Elevated lipase (Acute) Date of Admission: 09/17/20 Date of Discharge: 09/22/20 - Primary Discharge Diagnosis Acute Problems: Active Problems (Last Updated 09/17/20 @ 18:[address] Heide Medel MD) Diverticulitis of colon with perforation (Acute) Elevated lipase (Acute) Hospital Course and Treatment Imaging Results: Clinical Impression(s) from Imaging Studies Abdomen/Pelvis CT 09/17/20 14:37 IMPRESSION: Acute perforated sigmoid diverticulitis 1. There is acute diverticulitis in the mid aspect of the sigmoid colon near the midline of the upper pelvis with associated perforation and moderate pericolonic inflammatory stranding. Small amounts of contained free air are present just to the right of midline in the upper pelvis adjacent to the acute diverticulitis. The full length of the colon is mildly dilated with gas and fluid. 2. Small bowel ileus Electronically Signed: Moy Rhodes MD at 17:39 EDT , Service support , ADDENDUM: 09/17/20 1815 IMPRESSION: Acute perforated sigmoid diverticulitis 1. There is acute diverticulitis in the mid aspect of the sigmoid colon near the midline of the upper pelvis with associated perforation and moderate pericolonic inflammatory stranding. Small amounts of contained free air are present just to the right of midline in the upper pelvis adjacent to the acute diverticulitis. The full length of the colon is mildly dilated with gas and fluid. 2. Small bowel ileus N.B. : The above information has been verbally conveyed by Moy Rhodes MD to Dr Dominik MD, on 09/17/2020 18:08:09 (ET). Electronically Signed: Moy Rhodes MD at 17:39 EDT , Service support , Abdomen/Pelvis CT 09/20/20 10:00 IMPRESSION: 1. Acute sigmoid diverticulitis (similar) without focal fluid collection, extraluminal contrast or pneumoperitoneum/perforation (resolved since prior study). 2. Reactive cystitis. Electronically Signed: Homer Bello MD ([place]) at 14:21 EDT , Service support , Operations: None Procedures: None Summary of Care Provided: The patient is a 54 year old M patient presents to the ER due to increased abdominal pain for the last 3 days. Patient states previously has been hospitalized one other time for diverticulitis. Patient was kept n.p.o. with IV fluids. Patient's initial CT did show some extraluminal air near the sigmoid colon. Patient was also kept on IV antibiotics of Cipro/Flagyl. Patient did continue to improve each day. Patient have repeat CT abdomen pelvis which did show resolution of the extraluminal air outside sigmoid colon.Once patient's pain was minimal he did tolerate clears as well as full liquids. Patient was able to be DC'd home on full liquids initially and then he can transition to a low fiber diet at home. Patient also be sent home with Cipro Flagyl p.o. for 8 additional days. Patient Problems: Active and Suspected Problems (Last Updated 09/17/20 @ 18:[address] Heide Medel MD) Diverticulitis of colon with perforation (Acute) Elevated lipase (Acute) - Physical Exam Vitals/I&O's: Vital Signs Temp Pulse Resp BP Pulse Ox 97.8 F 72 18 131/88 H 97 09/22/20 07:26 09/22/20 07:26 09/22/20 07:26 09/22/20 07:26 09/22/20 07:26 Oxygen Delivery Method Room Air Weight: 177 lb 7.554 oz Body Mass Index (BMI) 27.8 Intake and Output for Last 24 Hours 09/20/20 09/21/20 09/22/20 23:59 23:59 23:59 Intake Total 2130 610 / 610 300 / 300 Balance 2130 610 / 610 300 / 300 General: Alert, Oriented x3, Cooperative, No apparent distress HEENT: Atraumatic Lungs: Normal air movement Cardiovascular: Regular rate Abdomen: Soft, Non Tender, Non-Distended Extremities: No clubbing, No cyanosis, No edema Neurological: Cranial nerves II-XII grossly intact Psych/Mental Status: Normal Affect Microbiology Past 72 Hours 09/17/20 15:25 Urine, Clean Catch Urine Culture - Final Enterococcus faecalis Current Medications Acetaminophen (Acetaminophen 325 Mg Tablet) 650 mg PO Q6H PRN PRN PRN Reason: Pain 1-10 or Fever Last Admin: 09/19/20 18:17 Dose: 650 mg Documented by: Ciprofloxacin (Cipro) 400 mg in 200 mls @ 200 mls/hr IV Q12 [facility] Last Infusion: 09/22/20 00:20 Dose: Infused Documented by: Metronidazole (Flagyl) 500 mg in 100 mls @ 100 mls/hr IV Q8 [facility] Last Infusion: 09/22/20 06:38 Dose: Infused Documented by: Pantoprazole Sodium 40 mg/ (Sodium Chloride) 110 mls @ 330 mls/hr IV Q24 [facility] Last Infusion: 09/21/20 10:13 Dose: Infused Documented by: Sodium Chloride () 250 mls @ 15 mls/hr IV .[id number] PRN PRN Reason: Saline Flush Sodium Chloride () 250 mls @ 15 mls/hr IV .[id number] PRN PRN Reason: Additional IVPB Infusion Melatonin (Melatonin 3 Mg Tablet) 3 mg PO QHS PRN PRN PRN Reason: INSOMNIA Morphine Sulfate (Morphine 2 Mg/Ml Syringe) 2 - 4 mg IV Q2H PRN PRN PRN Reason: Pain Score 3-10 Last Admin: 09/18/20 05:11 Dose: 2 mg Documented by: Morphine Sulfate (Morphine 4 Mg/Ml Syringe) 2 - 4 mg IV Q2H PRN PRN PRN Reason: Pain Score 3-10 Ondansetron HCl (Ondansetron 4 Mg/2 Ml Vial) 4 mg IV Q8H PRN PRN PRN Reason: NAUSEA/VOMITING Sodium Chloride (0.9% Saline Lock 10 Ml Syringe) 10 - 40 ml IV UD PRN PRN Reason: SALINE FLUSH Last Admin: 09/22/20 06:46 Dose: 10 ml Documented by: Discharge Diet: - - Full liquids,Ensure/protein drinks??in a few days or once pain appears to be completely resolved okay to transition to a low fiber diet. Will stay on the low fiber diet for about 3 to 4 weeks Discharge Activity: May Drive, May Shower Call your doctor if your incision/area has: Increased Pain/ Swelling Call your doctor if you observe: Fever of 101 or Higher Home Medications: Medications to take at Discharge Ciprofloxacin [Cipro] 500 mg PO BID #16 tab 09/22/20 Metronidazole 500 mg PO TID #24 tablet 09/22/20 Following Prescriptions Were Given to Patient: Ciprofloxacin [Cipro] 500 mg PO BID #16 tab Transmission Status: Pending to [facility] Metronidazole 500 mg PO TID #24 tablet Transmission Status: Pending to [facility] Primary Care Physician: Adalberto Santamaria MD [Primary Care Provider] - Please Follow Up With: Heide Medel MD - After 5 PM and on the weekends call [phone] with any concerns When: Call the office for a follow-up appointment in 1 to 2 weeks. Additional Instructions: Diet: Full liquids/protein or Ensure drinks okay and encouraged; Once pain is completely resolved or in a couple days okay to transition to transitional/low fiber diet. Will stay on a low fiber diet for about 3 to 4 weeks. Disposition: Home Minutes spent on discharge:: 15 Patient Condition:: Good Medical Necessity - Tobacco Use Smoking Status: Never smoker Tobacco Use: Non-smoker Meaningful Use Info Meaningful Use Diagnoses (Choose all that apply): None applicable Inpatient E&M: [id number] [facility]
[2020-09-22 11:02] VITALS: BP 131/88; PULSE 72; RESP 18; TEMP 36.6; O2SAT 97
== END 2020-09-22 11:02 | disposition home or self-care (01) | DRG 392 ==
LOC: ED 16:54 → MS3 17:46
PROVIDERS: Family Medicine; Admitting Provider Surgery; Emergency Provider Emergency Medicine; PCP Family Medicine; Visit Provider Surgery
DX: K57.20 Diverticulitis of large intestine with perforation and abscess without bleeding (principal); K21.9 Gastro-esophageal reflux disease without esophagitis; R74.8 Abnormal levels of other serum enzymes
CPT/HCPCS: 74177; 80048; 80053; 81001; 83605; 83690; 85025; 87077; 87086; 87088; 87186; 87426; 99284; J7030; J7120; Q9967; A4216; J0744; J2405

== ENCOUNTER 2021-11-14 02:36 | Emergency (ER) | payer OTHER, SELFPAY ==
[2021-11-14 02:37] VITALS: BP 163/85; PULSE 99; RESP 18; TEMP 37.2; O2SAT 96; BMI 27.8
--- NOTE | 2021-11-14 02:54 | EX.ED.DYSGE1 ---
HPI History of Present Illness Chief Complaint: Other, Pain/Inj Detail of Chief Complaint: Rectal pain Informant: patient Onset/Context/Timing Onset: Days (3-4) Context: Gradual Onset Timing: Continuous Quality: Painful/sore Location: Anus Current Severity: Severe Maximum Severity: Severe Worsened by: Sitting, moving/walking Relieved by: Lying prone or remaining still Associated Symptoms Associated Symptoms: Nausea and dry heaving tonight Narrative Narrative: Patient has been having gradually worsening painful area near his anus, woke up in the middle of the night with worse pain tonight. No fevers or chills or systemic symptoms except for some dry heaving tonight when he was in severe pain. No abdominal pain. No nausea now. Never had this before. No recent trauma or any obvious reason for this, although he has a history of having an anal fissure in the past. He has a history of some hemorrhoids as well and was putting hydrocortisone cream on it but it was not helping. [facility] Medical History Diverticulitis of colon with perforation Diverticulosis GERD (gastroesophageal reflux disease) Home Medications clindamycin HCl 300 mg PO 4X/DAY #80 capsule 11/14/21 [Rx Last Taken Unknown] Allergy/AdvReac Type Severity Reaction Status Date / Time bee venom protein (honey bee) Allergy Hives Verified 11/14/21 02:46 Penicillins AdvReac Swelling Verified 11/14/21 02:46 Surgical History History of colonoscopy (~2019) History of esophagogastroduodenoscopy (EGD) (~2019) Social History Smoking Status: Never smoker ROS ROS ED Constitutional Constitutional ED: Denies chills or fever(s) Eyes Eyes: Denies change in vision or diplopia ENT ENT ED: Denies rhinorrhea or sore throat Cardiovascular Cardiovascular: Denies chest pain or palpitations Respiratory/Chest Respiratory/Chest: Denies cough or dyspnea Gastrointestinal Gastrointestinal: Reports other Details: Rectal pain see HPI ; Denies abdominal pain, diarrhea, nausea or vomiting Genitourinary Genitourinary ED: Denies dysuria or hematuria Musculoskeletal Musculoskeletal: Denies back pain or neck pain Integumentary Denies abscess or rash Neurologic Neurologic: Denies headache(s), paresthesias or weakness Psychiatric Psychiatric: Denies anxiety or suicidal thoughts EXAM Physical Exam Const Vital Signs: 11/14/21 02:37 11/14/21 02:46 Temperature 99 F Temperature Source Temporal Pulse Rate 99 Respiratory Rate 18 Respiratory Effort Normal Non-Labored Respiratory Pattern Normal Blood Pressure 163/85 H Blood Pressure Mean 111 Pulse Ox 96 Oxygen Delivery Method Room Air Positive well nourished and well developed General Appearance ED: well developed and NAD HEENT Reports moist mucous membranes normocephalic and atraumatic Eyes PERRL and EOMs intact bilaterally Neck full ROM and supple Resp normal respiratory effort and clear to auscultation bilaterally Cardio regular rate, regular rhythm and no murmurs GI non-tender and non-distended GI Narrative: At approximately 10:00, there is an indurated very tender area consistent with a perianal abscess. No spontaneous discharge, no pointing. No external or thrombosed hemorrhoids visible. No coccyx tenderness or pilonidal. Auscultation: normoactive bowel sounds Palpation: soft Back/Spine no CVA tenderness General Back: other FROM Extremity normal to inspection General Extremety ED: Negative for edema, pulses abnormal or tenderness General Extremity: Negative for edema or pulses abnormal Neuro oriented x3, CN's II-XII intact bilaterally, no sensory deficits noted and gait normal Sensorium / Orientation: awake and alert Motor Exam: strength 5/5 throughout Skin no rashes or lesions noted and no wounds MDM MDM MDM Narrative Medical decision making narrative: I can palpate that this is a small localized indurated tender area with no mass or thrombosed hemorrhoid, consistent with perianal abscess. Perhaps due to a fissure the patient had. Patient was amenable to incision and drainage, this was done with a small incision with a #11 blade, there was no purulent discharge expressed, I tried to pack it but it was too small, we will place him on clindamycin and I will have him follow-up with surgery. We discussed wound care at home and sits baths after bowel movements especially. Procedures Other Procedures Procedure(s): Simple I&D perianal abscess: After informed consent from the patient, the area was prepped and draped in a sterile fashion with chlorhexidine, anesthetized locally with 6 cc of plain 1% lidocaine, and incised with a #11 blade in radial distribution away from the anus. There is an abscess cavity, but there was only small amount of bleeding and no purulent discharge expressed, even after the loculating the area. Tolerated well without complications, dressed with bacitracin. Attempted to pack with gauze the cavity too small. Discharge Plan Triage Chief Complaint: Other, Pain/Inj ED Provider: Almas Gr Dx/Rx/DC Orders Clinical Impression: Abscess, perianal Instructions: Taking a Sitz Bath, ED ABSCESS Nelida-Anal IandD Prescriptions: New clindamycin HCl 150 MG capsule 300 mg PO 4X/DAY Qty: 80 RF: 0 Primary Care Provider: NOT,DEFINED Referrals: Dale Haas MD [STAFF PHYSICIAN] - 3-5 Days if not improving NOT,DEFINED [Primary Care Provider] - Activity Restrictions/Additional Instructions: Do sitz bath at least twice daily, as well as after each bowel movement. Sitz bath in warm-hot soapy water, pat dry and place fresh piece of gauze dressing afterwards. Disposition Disposition: Home, Self Care
[2021-11-14] MEDS: Clindamycin HCl 150 MG Capsule 300 MG PO (03:17)
[2021-11-14] MEDS: Lidocaine 1% (20 ml mdv) 20 ML Vial INFILT (03:17)
[2021-11-14 03:22] VITALS: BP 154/88; PULSE 84; RESP 18; O2SAT 98
== END 2021-11-14 03:30 | disposition home or self-care (01) ==
LOC: ED 03:24
PROVIDERS: Emergency Provider Emergency Medicine; Visit Provider Emergency Medicine
DX: K61.0 Anal abscess (principal)
CPT/HCPCS: 46050; 99282

== ENCOUNTER → 2021-12-08 | Outpatient (CLI) | payer OTHER, SELFPAY ==
--- NOTE | 2021-12-08 07:48 | CT_ITS ---
EXAM: CT PELVIS WITH INTRAVENOUS CONTRAST CLINICAL INDICATION: neris rectal abscess TECHNIQUE: Helically acquired images were obtained of the pelvis with intravenous contrast. This CT exam was performed using one or more of the following dose reduction techniques: automated exposure control, adjustment of the mA and/or kV according to patient size, and/or use of iterative reconstruction technique. This report was created using [employer] report generation technology. CONTRAST: 100 cc of Isovue-300 IV. RADIATION DOSE: CTDIvol = 27.49 mGy, DLP = 1119.46 mGy-cm. COMPARISON: None. FINDINGS: BOWEL: Sigmoid diverticulosis without diverticulitis. No bowel distention. APPENDIX: Normal appendix. INTRAPERITONEAL SPACE: Unremarkable. No ascites or other fluid collection. No free air. BLADDER: Diffuse urinary bladder wall thickening. REPRODUCTIVE: Unremarkable as visualized. No mass. BONES/JOINTS: Unremarkable. No suspicious lytic or blastic abnormality. SOFT TISSUES: Unremarkable. No pelvic wall hernia. LYMPH NODES: Unremarkable. No enlarged lymph nodes. CT/Pelvis WITH IV Contrast IMPRESSION: 1. No perirectal abscess identified. 2. Sigmoid diverticulosis without diverticulitis. 3. Diffuse urinary bladder wall thickening. This may be due to muscular hypertrophy or cystitis. Electronically Signed: Demetri Amezcua MD at 6:48 EDT ,
== END | disposition home or self-care (01) ==
LOC: CT 07:44
PROVIDERS: Referring Provider Surgery; Visit Provider Surgery
DX: K61.1 Rectal abscess (principal)
CPT/HCPCS: 72193; Q9967

== ENCOUNTER → 2022-01-04 | Outpatient (CLI) | payer OTHER, SELFPAY ==
--- NOTE | 2022-01-04 | CYSPIN_PTH ---
PATIENT: KOLTON DENNY LOC: [facility] U#:[id number] AGE/SX: 56/M ROOM: RE01/04/[address]: Dr. Sterling Preciado MD : 1965 BED: DIS: 01/04/2022 SPEC #: [id number] RECD: 01/05/22 08:28 STATUS: ANTHONY RELidia #: [id number] CHRIS: 01/04/22 00:[address]: Sterling Preciado DEPT: CYTOLOGY RECD BY: Basil Amaro ENTERED: 01/05/22 08:28 SP TYPE: CYSPIN FL OTHR DR: No Primary Care Phys Tissues: Urine Procedures: Pap Stain (control) Special Stain Group II Cytospin Fluid HEADER OPERATION: Not noted PRE-OP DIAGNOSIS: TISSUE SUBMITTED: Urine for cytology DIAGNOSIS CYTOLOGY Urine for cytology (cytospin): Negative for malignant cells. Crystalline debris present. AM:chidi 01/05/2022 CYTOLOGY STUDY Slides are reviewed. CYTOLOGY GROSS Received is 60 ml of gold cloudy fluid labeled with the patient's name and and designated per the requisition as urine. Submitted for cytology preparation. / rg 01/04/2022 TC:5 CPT: 20064
[2022-01-04 11:24] LABS: Cytology, Body Fluid / CSF SEE PATHOLOGY REPORT; Mucous, Urine 0 SEEN /hpf (<or=2+); Red Blood Cells-Urine 0 SEEN /hpf (0-5); Squamous Epithelial Cells - UA 0 SEEN /hpf (0-5); White Blood Cells 0 SEEN /hpf (0-5)
[2022-01-04 15:19] LABS: Absolute Lymphocyte Count 1.65 X10^3/uL (0.83-4.51); Absolute Neutrophil Count 4.5 X10^3/uL (2.0-7.7); Basophil# 0.03 X10^3/uL; Basophil% 0.4 % (0-1); Eosinophil# 0.13 X10^3/uL; Eosinophils% 1.9 % (0-5); Hematocrit 49.8 % (40-54); Hemoglobin 16.2 g/dL (13.0-16.5); Lymphocyte # 1.65 X10^3/ul (0.83-4.51); Lymphocyte % 23.8 % (19-41); Mean Corp Hgb Conc 32.5 g/dL (32-36); Mean Platelet Vol. 10.2 fl (6.2-12.0); Monocyte# 0.61 X10^3/uL; Monocyte% 8.8 % (0-10); NRBC Flagged by Analyzer 0 % (0-5); Neutrophil # 4.48 X10^3/uL (2.7-7.7); Neutrophil % 64.7 % (47-70); Platelet Count 241 K/mm3 (150-450); RBC Distribution Width CV 13.8 % (11.6-14.6); RBC Distribution Width SD 43.2 fl (35.1-43.9); Red Blood Count 5.79 M/mm3 (4.6-6.2); White Blood Count 6.9 K/mm3 (4.4-11.0)
[2022-01-04 16:25] LABS: ALB/GLOB Ratio 0.9 RATIO (0.9-2.4); AST(SGOT) 23 U/L (15-37); Alanine Aminotransfer ALT/SGPT 38 U/L (16-61); Albumin, Serum 3.6 g/dL (3.2-5.0); Alkaline Phosphatase 57 U/L (45-117); Anion Gap 9 (5-15); BUN 18 mg/dL (7-18); BUN/Creat Ratio 16.7 RATIO (10-20); Calcium,Total 9.3 mg/dL (8.5-10.1); Chloride 101 mmol/L (98-107); Cholesterol 263 mg/dL (200); Creatinine, Serum 1.08 mg/dL (0.70-1.30); EST Glomerular Filtration Rate 75 mL/min (>60); Est Glom Filt Rate - Afr Amer 90 mL/min (>60); Globulin 3.9 g/dL (2.2-4.2); Glucose 100 mg/dL (74-106); High Density Lipoprotein 40 mg/dL; PSA,Total - Annual Screen 1.17 ng/mL (0.00-4.00); Potassium 4.2 mmol/L (3.5-5.1); Protein, Total 7.5 g/dL (6.4-8.2); Sodium Level 136 mmol/L (136-145); Triglycerides 832 mg/dL
[2022-01-04 16:31] LABS: Color, Urine Yellow (Yellow); Glucose, Dipstick Normal (Normal); Ketone-Dipstick Negative (Negative); Leukocyte Esterase-Dipstick Negative /ul (Negative); Nitrite-Dipstick Negative (Negative); Occult Blood-Urine Negative /ul (Negative); Protein-Dipstick 15 mg/dl (Negative); Urine Bilirubin Dipstick Negative (Negative); Urine Clarity Clear (Clear); Urine Urobilinogen Normal (Normal)
[2022-01-04 17:14] LABS: Bacteria RARE /hpf (None Seen); Uric Acid Crystals Ur 4+ /hpf (<or=1+)
== END | disposition home or self-care (01) ==
LOC: MFPLAB 11:23
PROVIDERS: Visit Provider Family Medicine
DX: E78.1 Pure hyperglyceridemia (principal); N32.89 Other specified disorders of bladder; N40.0 Benign prostatic hyperplasia without lower urinary tract symptoms
CPT/HCPCS: 36415; 80053; 80061; 81001; 84153; 85025; 88108; 88313; G0103

== ENCOUNTER → 2022-01-12 | Outpatient (CLI) | payer OTHER, SELFPAY ==
--- NOTE | 2022-01-12 10:28 | US_ITS ---
STUDY: ULTRASOUND - URINARY BLADDER REASON FOR EXAM: Male, 56 years old. bph with incomplete emptying TECHNIQUE: Ultrasound evaluation of the urinary bladder was performed with real-time and static weeks-scale imaging. COMPARISON: None. FINDINGS: There is no right UVJ calculus. There is a visualized right ureteral jet. There is no left UVJ calculus. There is a visualized left ureteral jet. The distended volume of the urinary bladder is 242 ml. The empty volume of the urinary bladder is 32 ml. The bladder wall is within normal limits. The bladder wall measures 2 mm. There is no demonstrated bladder wall mass lesion. There are no demonstrated bladder calculi. US/Post Void Residual Bladder IMPRESSION: Small post void residual. Electronically Signed: Ortiz Reed MD at 12:22 EDT ,
== END | disposition home or self-care (01) ==
LOC: US 10:27
PROVIDERS: PCP Family Medicine; Referring Provider Family Medicine; Visit Provider Family Medicine
DX: R33.9 Retention of urine, unspecified (principal)
CPT/HCPCS: 51798

== ENCOUNTER 2023-02-11 17:44 | Emergency (ER) | payer OTHER, SELFPAY ==
[2023-02-11 17:45] VITALS: BP 139/93; PULSE 73; RESP 18; TEMP 36.6; O2SAT 98; BMI 26.1
--- NOTE | 2023-02-11 18:12 | EDS_ITS ---
HPI History of Present Illness Chief Complaint: Flank Pain Detail of Chief Complaint: Right flank pain Informant: patient Onset/Context/Timing Onset: Days Context: Sudden Onset Timing: Continuous and Waxes and wanes Quality: Pain Location: Right flank Current Severity: Mild Maximum Severity: Moderate Worsened by: Heavy need make patient flex band and palpation Relieved by: Nothing Associated Symptoms Associated Symptoms: No urologic symptoms Narrative Narrative: Patient is a 57-year-old male who presents with right flank pain. He denies dysuria, frequency, urgency or hematuria. He had a urine analysis performed at the [facility] on February 08 which was negative. Patient denies fever, chills night sweats. Patient denies respiratory or cardiac symptoms. Patient denies intolerance to greasy or fried foods. Patient does endorse 10 pound intentional weight loss. He states he was very conscious of his diet and eating well. He has gained 4 of those pounds back. He is concerned about internal organ problems. He denies dark-colored urine. He denies light-colored stool. He states the doctor that he saw at the [facility] check for rash. He had hypersensitivity to light touch. Prior similar symptoms: Yes Recent Illness/Hospitalization: Yes (Urgent care [facility]) [facility] Medical History Diverticulitis of colon with perforation Diverticulosis Dysphasia GERD (gastroesophageal reflux disease) Perianal abscess Home Medications clindamycin HCl 300 mg capsule 300 mg PO Q8H #21 caps 01/20/22 [Rx Last Taken Unknown] hydrocortisone acetate 30 mg rectal suppository 30 mg NM BID #12 ea 01/20/22 [Rx Last Taken Unknown] tramadol 50 mg tablet 50 mg PO Q6H PRN pain #15 tabs 01/20/22 [Rx Last Taken Unknown] doxycycline monohydrate 100 mg capsule 100 mg PO BID #14 CAPSULES 02/11/23 [Rx Last Taken Unknown] naproxen 500 mg tablet 500 mg PO BID #14 tabs 02/11/23 [Rx Last Taken Unknown] Allergy/AdvReac Type Severity Reaction Status Date / Time bee venom protein (honey bee) Allergy Hives Verified 02/11/23 17:48 Penicillins AdvReac Swelling Verified 02/11/23 17:48 Family History Aunt Cancer lymphoma Mother Cancer Lung cancer Father Cancer Lung cancer Uncle Cancer Lung cancer Uncle Cancer Bone Cancer Brother Diabetes Surgical History History of colonoscopy (~2019) History of esophagogastroduodenoscopy (EGD) (~2019) Hx of right knee surgery Social History (Updated 02/11/23 @ 18:[address] William Saunders MD) household members: none Smoking Status: Never smoker alcohol intake: current alcohol intake frequency: 0-2 drinks per day Alcohol type: beer and wine substance use type: does not use ROS ROS ED Constitutional Constitutional ED: Reports weight loss; Denies chills, fever(s), subjective or sweats Eyes Eyes: Denies blurry vision, change in vision or diplopia ENT ENT ED: Denies ear pain, rhinorrhea or sore throat Cardiovascular Cardiovascular: Denies chest pain, orthopnea, palpitations, paroxysmal nocturnal dyspnea or racing heartbeat Respiratory/Chest Respiratory/Chest: Denies cough, dyspnea, dyspnea on exertion, orthopnea or paroxysmal nocturnal dyspnea Gastrointestinal Gastrointestinal: Denies abdominal pain, constipation, diarrhea, melena, nausea or vomiting Genitourinary Genitourinary ED: Denies dysuria, hematuria or urinary frequency Musculoskeletal Musculoskeletal: Reports back pain; Denies arthralgias, myalgias or neck pain Integumentary Denies rash Neurologic Neurologic: Denies paresthesias or weakness Hematologic/Lymphatic Hematologic/Lymphatic: Denies anemia, easy bleeding, easy bruising or lymphadenopathy EXAM Physical Exam Const Vital Signs: 02/11/23 17:45 Temperature 97.8 F Temperature Source Temporal Pulse Rate 73 Respiratory Rate 18 Blood Pressure 139/93 H Blood Pressure Mean 108 Pulse Ox 98 Oxygen Delivery Method Room Air Positive well nourished and well developed General Appearance ED: well developed and NAD; Negative for cyanotic, diaphoretic or pallor HEENT Reports moist mucous membranes HEENT Narrative: Head is atraumatic normocephalic. Ears normal. Eyes PERRL and EOMs intact bilaterally General Eye ED: Negative for pale conjunctiva or scleral icterus Neck no lymphadenopathy, supple and no JVD Chest Wall inspection of chest normal and palpation of chest normal Resp normal respiratory effort and clear to auscultation bilaterally Cardio regular rate, regular rhythm, S1 normal heart sound, S2 normal heart sound and no murmurs GI normal to inspection, nondistended, normoactive bowel sounds, non-tender, non- distended and no masses; Negative for hepatosplenomegaly Auscultation: hypoactive bowel sounds Palpation: soft Back/Spine no CVA tenderness Back/Spine Narrative: Pustular rash that is predominantly on the right side from the sixth rib down to the low back region. There is no hyperesthesia. There is pain with bending to the right and left. There is pain with palpation. There is pain with flexion greater than with extension at the back. Cervical Spine: Negative for cervical spine tenderness Thoracic Spine / Upper Back: Negative for thoracic spinal tenderness Lumbar Spine / Lower Back: Negative for lumbar spinal tenderness Neuro oriented x3, CN's II-XII intact bilaterally and no sensory deficits noted Sensorium / Orientation: alert Motor Exam: strength 5/5 throughout Psych mental status grossly normal Skin No no rashes or lesions noted, no wounds and skin turgor normal Skin Narrative: Patient has a pustular rash predominantly on the. Rashes consistent with folliculitis. General Skin Exam: elasticity normal; Negative for jaundice or pallor MDM MDM MDM Narrative Medical decision making narrative: In my opinion patient's back pain is a muscular etiology and can be treated with NSAIDs unless she has a contraindication and ice. The pustular rash since it is extensive was treated with doxycycline for streptococcal and staphylococcal coverage. History & Record Review Additional record(s) reviewed:: Prior outpatient record (Record for most recent urgent care visit was reviewed.) Lab Data Attestation: I reviewed the patient's lab results. Lab results narrative: Cipro gravity is elevated at 1.030. Macro is positive for ketones, occult blood, urobilinogen. There are 0-5 RBCs 0 WBCs 0 bacteria with 5-10 hyaline casts. Labs: Laboratory Results - last 24 hr 02/11/23 19:05 Urine Color Yellow Urine Clarity Clear Urine pH 5.0 Ur Specific Waldron 1.030 Urine Protein 15 H Urine Glucose (UA) Normal Urine Ketones 15 H Urine Occult Blood 10 H Urine Nitrite Negative Urine Bilirubin 1 H Urine Urobilinogen 1 H Ur Leukocyte Esterase Negative Urine RBC 0-5 SEEN Urine WBC 0 SEEN Ur Squamous Epith Cells 0 SEEN Urine Bacteria 0 SEEN Hyaline Casts 5-10 SEEN Urine Mucus 0 SEEN Discharge Plan Triage Chief Complaint: Flank Pain ED Provider: William Saunders Dx/Rx/DC Orders Clinical Impression: Acute right flank pain, Pustular rash, Acute left-sided thoracic back pain Instructions: ED Back Pain (Acute or Chronic), ED Folliculitis Prescriptions: New doxycycline monohydrate 100 mg capsule 100 mg PO BID Qty: 14 0RF naproxen 500 mg tablet 500 mg PO BID Qty: 14 0RF No Action hydrocortisone acetate 30 mg suppository 30 mg NM BID Qty: 12 4RF clindamycin HCl 300 mg capsule 300 mg PO Q8H Qty: 21 0RF tramadol 50 mg tablet 50 mg PO Q6H PRN (Reason: pain) Qty: 15 0RF Primary Care Provider: Sterling Preciado Referrals: Sterling Preciado MD [Primary Care Provider] - 1 Week if not improving Disposition Disposition: Home, Self Care
[2023-02-11 19:09] LABS: Bacteria 0 SEEN /hpf (None Seen); Mucous, Urine 0 SEEN /hpf (<or=2+); Squamous Epithelial Cells - UA 0 SEEN /hpf (0-5); White Blood Cells 0 SEEN /hpf (0-5)
[2023-02-11 19:10] LABS: Color, Urine Yellow (Yellow); Glucose, Dipstick Normal (Normal); Ketone-Dipstick 15 mg/dl (Negative); Leukocyte Esterase-Dipstick Negative /ul (Negative); Nitrite-Dipstick Negative (Negative); Occult Blood-Urine 10 /ul (Negative); Protein-Dipstick 15 mg/dl (Negative); Urine Clarity Clear (Clear); Urine Urobilinogen 1 mg/dl (Normal)
[2023-02-11 19:14] LABS: Urine Bilirubin Dipstick 1 mg/dL (Negative)
[2023-02-11 19:16] LABS: Red Blood Cells-Urine 0-5 SEEN /hpf (0-5)
[2023-02-11 19:17] LABS: Hyaline Cast 5-10 SEEN /lpf (0-5)
[2023-02-11 20:19] LABS: Absolute Lymphocyte Count 1.59 X10^3/uL (0.83-4.51); Absolute Neutrophil Count 4.4 X10^3/uL (2.0-7.7); Basophil# 0.04 X10^3/uL; Basophil% 0.6 % (0-1); Eosinophil# 0.04 X10^3/uL; Eosinophils% 0.6 % (0-5); Hematocrit 50.5 % (40-54); Hemoglobin 16.3 g/dL (13.0-16.5); Lymphocyte # 1.59 X10^3/ul (0.83-4.51); Lymphocyte % 23.4 % (19-41); Mean Corp Hgb Conc 32.3 g/dL (32-36); Mean Corpuscular Hgb 28.2 pg (27.0-32.0); Mean Corpuscular Volume 87.5 fL (80-94); Mean Platelet Vol. 9.2 fl (6.2-12.0); Monocyte# 0.65 X10^3/uL; Monocyte% 9.6 % (0-10); NRBC Flagged by Analyzer 0 % (0-5); Neutrophil # 4.44 X10^3/uL (2.7-7.7); Neutrophil % 65.4 % (47-70); Platelet Count 203 K/mm3 (150-450); RBC Distribution Width CV 12.7 % (11.6-14.6); RBC Distribution Width SD 40.8 fl (35.1-43.9); Red Blood Count 5.77 M/mm3 (4.6-6.2); White Blood Count 6.8 K/mm3 (4.4-11.0)
[2023-02-11 20:36] LABS: ALB/GLOB Ratio 0.9 RATIO (0.9-2.4); AST(SGOT) 20 U/L (15-37); Alanine Aminotransfer ALT/SGPT 25 U/L (16-61); Albumin, Serum 3.9 g/dL (3.2-5.0); Alkaline Phosphatase 56 U/L (45-117); Anion Gap 6 (5-15); BUN 16 mg/dL (7-18); BUN/Creat Ratio 13.3 RATIO (10-20); Calcium,Total 9.6 mg/dL (8.5-10.1); Chloride 107 mmol/L (98-107); EST Glomerular Filtration Rate 66 mL/min (>60); Est Glom Filt Rate - Afr Amer 80 mL/min (>60); Estimated Creatinine Clearance 64.13 ml/min; Globulin 4.2 g/dL (2.2-4.2); Glucose 88 mg/dL (74-106); Potassium 3.9 mmol/L (3.5-5.1); Protein, Total 8.1 g/dL (6.4-8.2); Sodium Level 139 mmol/L (136-145)
== END 2023-02-11 21:23 | disposition home or self-care (01) ==
PROVIDERS: Emergency Provider Emergency Medicine; PCP Family Medicine; Visit Provider Emergency Medicine
DX: R10.9 Unspecified abdominal pain (principal); R21 Rash and other nonspecific skin eruption; M54.6 Pain in thoracic spine
CPT/HCPCS: 80053; 81001; 85025; 99283; A4216

== ENCOUNTER → 2023-02-16 | Outpatient (CLI) | payer OTHER, SELFPAY ==
[2023-02-16 12:18] LABS: Bacteria 0 SEEN /hpf (None Seen); Mucous, Urine 0 SEEN /hpf (<or=2+); Red Blood Cells-Urine 0 SEEN /hpf (0-5); Squamous Epithelial Cells - UA 0 SEEN /hpf (0-5); White Blood Cells 0 SEEN /hpf (0-5)
[2023-02-16 15:10] LABS: Absolute Lymphocyte Count 1.47 X10^3/uL (0.83-4.51); Absolute Neutrophil Count 3.3 X10^3/uL (2.0-7.7); Basophil# 0.04 X10^3/uL; Basophil% 0.7 % (0-1); Eosinophil# 0.05 X10^3/uL; Eosinophils% 0.9 % (0-5); Hematocrit 50.1 % (40-54); Hemoglobin 16.2 g/dL (13.0-16.5); Lymphocyte # 1.47 X10^3/ul (0.83-4.51); Lymphocyte % 27.5 % (19-41); Mean Corp Hgb Conc 32.3 g/dL (32-36); Mean Corpuscular Hgb 28.5 pg (27.0-32.0); Mean Platelet Vol. 10.2 fl (6.2-12.0); Monocyte% 9.4 % (0-10); NRBC Flagged by Analyzer 0 % (0-5); Neutrophil # 3.27 X10^3/uL (2.7-7.7); Neutrophil % 61.3 % (47-70); Platelet Count 242 K/mm3 (150-450); RBC Distribution Width CV 12.6 % (11.6-14.6); Red Blood Count 5.69 M/mm3 (4.6-6.2); White Blood Count 5.3 K/mm3 (4.4-11.0)
[2023-02-16 15:34] LABS: Color, Urine Yellow (Yellow); Glucose, Dipstick Normal (Normal); Ketone-Dipstick 5 mg/dl (Negative); Leukocyte Esterase-Dipstick Negative /ul (Negative); Nitrite-Dipstick Negative (Negative); Occult Blood-Urine Negative /ul (Negative); Protein-Dipstick Negative (Negative); Urine Bilirubin Dipstick Negative (Negative); Urine Clarity Clear (Clear); Urine Urobilinogen Normal (Normal)
[2023-02-16 15:44] LABS: ALB/GLOB Ratio 1.1 RATIO (0.9-2.4); AST(SGOT) 24 U/L (15-37); Alanine Aminotransfer ALT/SGPT 29 U/L (16-61); Albumin, Serum 3.9 g/dL (3.2-5.0); Alkaline Phosphatase 61 U/L (45-117); Anion Gap 5 (5-15); BUN 14 mg/dL (7-18); BUN/Creat Ratio 12.6 RATIO (10-20); Calcium,Total 9.7 mg/dL (8.5-10.1); Chloride 102 mmol/L (98-107); Creatinine, Serum 1.11 mg/dL (0.70-1.30); EST Glomerular Filtration Rate 72 mL/min (>60); Est Glom Filt Rate - Afr Amer 87 mL/min (>60); Globulin 3.7 g/dL (2.2-4.2); Glucose 88 mg/dL (74-106); Potassium 4.3 mmol/L (3.5-5.1); Protein, Total 7.6 g/dL (6.4-8.2); Sodium Level 133 mmol/L (136-145)
== END | disposition home or self-care (01) ==
LOC: MFPLAB 12:16
PROVIDERS: PCP Family Medicine; Visit Provider Family Medicine
DX: R10.9 Unspecified abdominal pain (principal)
CPT/HCPCS: 36415; 80053; 81001; 85025

== ENCOUNTER → 2023-02-23 | Outpatient (CLI) | payer OTHER, SELFPAY ==
--- NOTE | 2023-02-23 16:20 | RAD_ITS ---
EXAM: XR ABDOMEN, 1 VIEW CLINICAL INDICATION: flank pain TECHNIQUE: Frontal supine view of the abdomen/pelvis. COMPARISON: No relevant prior studies available. FINDINGS: LOWER THORAX: No acute pathology. GASTROINTESTINAL TRACT: Unremarkable. Non-obstructive. No bowel or stomach distention. ORGANS: Unremarkable as visualized. No organomegaly. No abnormal calcifications. BONES/JOINTS: No acute pathology. SOFT TISSUES: No acute pathology. RAD/Abdomen Single View IMPRESSION: Non-obstructive bowel gas pattern. Electronically Signed: Demetri Amezcua MD at 23:14 EDT ,
== END | disposition home or self-care (01) ==
LOC: RAD.FUTURE 16:10 → RAD 16:16
PROVIDERS: PCP Family Medicine; Referring Provider Family Medicine; Visit Provider Family Medicine
DX: R10.9 Unspecified abdominal pain (principal)
CPT/HCPCS: 74018

== ENCOUNTER → 2023-03-07 | Outpatient (CLI) | payer OTHER, SELFPAY ==
--- NOTE | 2023-03-07 07:49 | CT_ITS ---
STUDY: CT ABDOMEN AND PELVIS WITH CONTRAST REASON FOR EXAM: Male, 57 years old. Pyelonephritis, has had x-ray, abx treatment, still with symptoms RADIATION DOSAGE (If Supplied By Facility): CTDIvol = ( 11.69 ) mGy, DLP = ( 631.67 ) mGycm TECHNIQUE: Transaxial images were obtained from the dome of the diaphragm to the symphysis pubis without oral contrast. IV 100mL Isovue-300 was administered. Sagittal and coronal images were reconstructed. Individualized dose optimization techniques were used for this CT. COMPARISON: Comparison is made with prior study dated September 20, 2020. FINDINGS: The visualized lung bases are unremarkable. The visualized portions of the heart are within normal limits. Normal liver. Normal gallbladder and extrahepatic biliary system. Normal spleen. Normal pancreas. Normal bilateral adrenal glands. Normal right kidney. Normal left kidney. Incidental note is made of a retroaortic left renal vein. Normal visualized stomach. Normal small intestine. There are multiple colonic diverticula consistent with diverticulosis. The appendix is visualized and appears normal. Normal abdominal aorta. Normal inferior vena cava. Normal retroperitoneum. Diffuse bladder wall thickening. Cystitis should BE ruled out. There is enlargement of the prostate gland. The prostate measures 4 cm x 5 cm. This causes indentation of the bladder base. Central prostatic calcifications are seen. There is enlargement of the seminal vesicles bilaterally There is a small umbilical hernia containing fat. There are mild degenerative changes of the visualized lumbar spine. CT/Abdomen/Pelvis W IV Cont ONLY IMPRESSION: Diffuse bladder wall thickening with enlargement of the prostate causing indentation of the bladder base. Electronically Signed: Ortiz Reed MD at 13:39 EDT ,
== END | disposition home or self-care (01) ==
LOC: CT 07:49
PROVIDERS: PCP Family Medicine; Referring Provider Family Medicine; Visit Provider Family Medicine
DX: N12 Tubulo-interstitial nephritis, not specified as acute or chronic (principal)
CPT/HCPCS: 74177; Q9967

== ENCOUNTER → 2023-03-30 | Outpatient (CLI) | payer OTHER, SELFPAY ==
[2023-03-30 18:35] LABS: PSA,Total - Annual Screen 1.19 ng/mL (0.00-4.00)
== END | disposition home or self-care (01) ==
LOC: MFPLAB 16:38
PROVIDERS: PCP Family Medicine; Visit Provider Family Medicine
DX: N40.0 Benign prostatic hyperplasia without lower urinary tract symptoms (principal)
CPT/HCPCS: 36415; 84153; G0103

== ENCOUNTER → 2023-04-18 | Outpatient (CLI) | payer OTHER, SELFPAY ==
--- NOTE | 2023-04-18 10:22 | US_ITS ---
STUDY: ULTRASOUND - URINARY BLADDER REASON FOR EXAM: Male, 57 years old. bph, imcomplete bladder emptying TECHNIQUE: Ultrasound evaluation of the urinary bladder was performed with real-time and static weeks-scale imaging. COMPARISON: None. FINDINGS: There is no right UVJ calculus. There is a visualized right ureteral jet. There is no left UVJ calculus. There is a visualized left ureteral jet. The distended volume of the urinary bladder is 51.3 ml. The empty volume of the urinary bladder is 19.6 ml. The bladder wall is diffusely thickened. The bladder wall measures 5 mm. There is no demonstrated bladder wall mass lesion. There are no demonstrated bladder calculi. US/Post Void Residual Bladder IMPRESSION: Small postvoid residual. Diffuse bladder wall thickening. Electronically Signed: Ortiz Reed MD at 15:05 EDT ,
== END | disposition home or self-care (01) ==
LOC: US 10:21
PROVIDERS: PCP Family Medicine; Referring Provider Family Medicine; Visit Provider Family Medicine
DX: N40.1 Benign prostatic hyperplasia with lower urinary tract symptoms (principal); R39.14 Feeling of incomplete bladder emptying
CPT/HCPCS: 51798

== ENCOUNTER 2024-07-29 09:27 | Emergency (ER) | payer OTHER, SELFPAY ==
[2024-07-29 09:29] VITALS: BP 149/88; PULSE 83; RESP 18; TEMP 36.1; O2SAT 97; BMI 27.3
--- NOTE | 2024-07-29 10:08 | ED.VIS.LOWEX ---
HPI History of Present Illness HPI Narrative: 58-year-old male past medical history of Lyme and rheumatoid arthritis currently on methotrexate sees a health education coordinator. He was diagnosed with Lyme disease about 9 months ago. States he has atraumatic left knee pain and swelling since Tuesday evening. Denies any fall or trauma. No fever or redness. No prior surgery to his left knee. No recent injury or illness. Chief Complaint: Lower Extremity Injury Informant: patient Occured/Mechanism Mechanism/Context: No injury and No blunt trauma Onset/Context/Timing Onset: Days Context: Gradual Onset Timing: Continuous Quality of Pain: Dull and Aching Current Severity: Moderate Maximum Severity: Moderate Associated Symptoms Associated Symptoms: Negative for Parasthesia, Weakness or Loss of Funtion Narrative Narrative: 58-year-old male atraumatic left knee pain and swelling since Tuesday. Prior similar symptoms: Yes Recent Illness/Hospitalization: No PFSH PFSH Medical History Perianal abscess Dysphasia Diverticulosis GERD (gastroesophageal reflux disease) Diverticulitis of colon with perforation Home Medications ?Medication ?Instructions ?Recorded ?Last Taken ?Type clindamycin HCl 300 mg capsule 300 mg PO Q8H #21 caps 01/20/22 Unknown Rx hydrocortisone acetate 30 mg 30 mg [place] BID #12 ea 01/20/22 Unknown Rx rectal suppository tramadol 50 mg tablet 50 mg PO Q6H PRN pain #15 tabs 01/20/22 Unknown Rx doxycycline monohydrate 100 mg 100 mg PO BID #14 CAPSULES 02/11/23 Unknown Rx capsule naproxen 500 mg tablet 500 mg PO BID #14 tabs 02/11/23 Unknown Rx Allergy/AdvReac Type Severity Reaction Status Date / Time bee venom protein (honey bee) Allergy Hives Verified 07/29/24 09:28 Penicillins AdvReac Swelling Verified 07/29/24 09:28 Family History Aunt Cancer lymphoma Mother Cancer Lung cancer Father Cancer Lung cancer Uncle Cancer Lung cancer Uncle Cancer Bone Cancer Brother Diabetes Surgical History Hx of right knee surgery History of colonoscopy (~2019) History of esophagogastroduodenoscopy (EGD) (~2019) Social History household members: none Smoking Status: Never smoker alcohol intake: current alcohol intake frequency: 0-2 drinks per day Alcohol type: beer and wine substance use type: does not use ROS ROS ED ROS Narrative Denies recent illness. Denies fever or chills. Constitutional Constitutional ED: Denies chills or fever(s) Eyes Eyes: Denies blurry vision ENT ENT ED: Denies ear pain Cardiovascular Cardiovascular: Denies chest pain Respiratory/Chest Respiratory/Chest: Denies cough or dyspnea Gastrointestinal Gastrointestinal: Denies abdominal pain Genitourinary Genitourinary ED: Denies dysuria or hematuria Musculoskeletal Musculoskeletal: Denies arthralgias or back pain Integumentary Denies abscess or Abrasions Neurologic Neurologic: Denies headache(s) Psychiatric Psychiatric: Denies anxiety or depression Endocrine Endocrinology: Denies polydipsia or polyphagia Hematologic/Lymphatic Hematologic/Lymphatic: Denies easy bleeding or easy bruising Allergic/Immunologic Allergic/Immunologic ED: Denies mouth swelling or tongue swelling EXAM Physical Exam Narrative Exam Narrative: 58-year-old male sitting upright in bed. No acute distress. Vital signs are stable and afebrile. He does not look septic or toxic. H EENT exam pupils round reactive light. Extra motions are intact. Moist mucous membranes. Neck nontender. No lymphadenopathy. Lungs clear to auscultation bilaterally. Heart regular rhythm no murmur rate about 80. Chest wall ribs nontender. Abdomen soft nontender. Back nontender. Left knee is mild tenderness. Mild swelling. Possibly a small effusion. No signs of a septic joint. Is not red or hot. He is able to flex and extend it with some discomfort. But he has full extension 180 degrees and full flexion. Left foot is neurovascularly intact with normal DP pulse. Normal dorsi plantarflexion. Able to wiggle his toes. Normal touch sensation. Skin of the left lower extremity is unremarkable. No rashes. No inguinal lymphadenopathy. He has normal range of motion of both his left ankle and left hip. Neurologically is awake and alert no focal motor deficits. Const Vital Signs: 07/29/24 09:29 Temperature 97 F L Temperature Source Temporal Pulse Rate 83 Respiratory Rate 18 Blood Pressure 149/88 H Blood Pressure Mean 108 Pulse Ox 97 Oxygen Delivery Method Room Air Positive well nourished and well developed; Negative for obese, cachectic, contractures or unkempt General Appearance ED: well developed and NAD; Negative for unkempt, cachectic or contractures Nutritional Appearance: Negative for cachectic or obese HEENT Reports moist mucous membranes normocephalic and atraumatic Eyes PERRL Neck full ROM and supple Chest Wall inspection of chest normal and palpation of chest normal Resp normal respiratory effort, no retractions and clear to auscultation bilaterally Effort and Inspection: Negative for pain with movement Auscultation: Negative for rales, rhonchi, wheezes or diminished lung sounds Cardio regular rate, regular rhythm, S1 normal heart sound, S2 normal heart sound and no murmurs Rate: Negative for bradycardia or tachycardic GI non-tender, non-distended and no masses Auscultation: normoactive bowel sounds Palpation: soft; Negative for tender, guarding or rebound tenderness present Back/Spine no CVA tenderness General Back: Negative for CVA tenderness or swelling Cervical Spine: Negative for cervical spine tenderness Thoracic Spine / Upper Back: Negative for thoracic spinal tenderness Lumbar Spine / Lower Back: Negative for lumbar spinal tenderness Extremity normal to inspection and full ROM Extremity Narrative: Except left knee mildly swollen. Mildly tender. Normal range of motion. No septic joint. Not hot. Not red. Left foot neurovascularly intact. No inguinal lymphadenopathy. No rash. General Extremety ED: Negative for cyanosis General Extremity: Negative for cyanosis Neuro oriented x3, CN's II-XII intact bilaterally, moves all extremities and no sensory deficits noted Sensorium / Orientation: alert, oriented to person, oriented to place and oriented to time; Negative for orientation impaired, confused, lethargic or stuporous Motor Exam: strength 5/5 throughout Psych mental status grossly normal Appearance: Negative for unkempt Skin no wounds Lesions: no lesions Rashes: no rashes Trauma: Negative for abrasion, laceration or puncture MDM MDM MDM Narrative Medical decision making narrative: 58-year-old male atraumatic left knee pain. This may be from arthritis. It does not look infected. Does not look like a septic joint. He has no history of trauma. Will obtain an x-ray. I do not think he needs any blood work. Repeat exam patient doing well at 11:38 AM. We went over his x-ray results. Treatment plan to be prednisone daily for 7 days. First dose given in the ER. Outpatient follow-up with his primary care physician Dr. Sterling Baeza. History & Record Review Discussion w/independent historian: Patient Radiography Diagnostic Testing: Clinical Impression(s) from Imaging Studies Knee X-Ray 07/29/24 10:29 IMPRESSION: No acute radiographic process. Reading Location: [facility] Left knee x-ray, 4 views, interpreted by myself and radiologist shows really no acute abnormality. No fracture. No dislocation. No significant signs of arthritis. Good joint space. No significant effusion. I went over the x-ray with the patient. Discharge Plan Triage Chief Complaint: Lower Extremity Injury ED Provider: Cam Malhotra Dx/Rx/DC Orders Prescriptions: No Action hydrocortisone acetate 30 mg suppository 30 mg [place] BID Qty: 12 4RF clindamycin HCl 300 mg capsule 300 mg PO Q8H Qty: 21 0RF tramadol 50 mg tablet 50 mg PO Q6H PRN (Reason: pain) Qty: 15 0RF doxycycline monohydrate 100 mg capsule 100 mg PO BID Qty: 14 0RF naproxen 500 mg tablet 500 mg PO BID Qty: 14 0RF Primary Care Provider: Sterling Preciado Referrals: Sterling Preciado MD [Primary Care Provider] - Print Language: Faroese
--- NOTE | 2024-07-29 10:29 | RAD_ITS ---
PROCEDURE: KNEE 4 OR MORE VIEWS REASON FOR EXAM: Pain TECHNIQUE: Four views left knee COMPARISON: None. FINDINGS: No fracture. No suspicious bone lesion. Normal alignment. No effusion. Soft tissues are unremarkable. RAD/Knee 4 or More Views IMPRESSION: No acute radiographic process. Reading Location: [facility] [address]
[2024-07-29] MEDS: predniSONE 20 MG Tablet 40 MG PO (11:53)
[2024-07-29 11:57] VITALS: BP 140/76; PULSE 82; RESP 16; TEMP 36.9; O2SAT 96
== END 2024-07-29 11:57 | disposition home or self-care (01) ==
PROVIDERS: Emergency Provider Emergency Medicine; PCP Family Medicine; Visit Provider Emergency Medicine
DX: M25.562 Pain in left knee (principal)
CPT/HCPCS: 73564; 99282